=== PATIENT | female | born 1935 | race Hispanic/Latino ===

== ENCOUNTER 2019-03-03 10:33 | Observation (INO) | payer MEDICARE ==
[~2019-03-03] VITALS: Ht 165.1 cm; Wt 52.7 kg
[~2019-03-03 10:33] MED LIST: ASPIR 8181 MG PO; ATENOLOL50 MG PO; ATORVASTATIN CA40 MG PO; BISACODYL5 MG PO; CETIRIZINE HCL10 MG PO; CHOLEST OFF450 MG PO; CLOPIDOGREL75 MG PO; CYCLOBENZAPRINE10 MG PO; DICYCLOMINE HCL20 MG PO; DOCUSATE SODIU100 MG; DONEPEZIL HCL5 MG PO; HYDRALAZINE HCL50 MG PO; LIDOCAINE TOP; LISINOPRIL40 MG PO; MECLIZINE HCL12.5 MG PO; METOPROLOL TART25 MG PO; NAMENDA XR PO; NAPROXEN500 M1 PO; OXYBUTYNIN CHLOR5 MG PO; PANTOPRAZOLE SO40 MG PO; PREDNISONE20 MG PO; PROMETHAZINE HC25 M1 PO; RIVASTIGMINE4.5 MG PO; ULTRAM50 MG PO
[2019-03-03] MEDS ORDERED: SODIUM CHLORIDE 0.9% 1000ML 1,000 ML IV STA (10:52)
[2019-03-03] MEDS ORDERED: MORPHINE SULFATE INJ 4 MG/ML INJ 1ML IV ONE (11:30)
[2019-03-03] MEDS ORDERED: ONDANSETRON HCL INJ 2MG/ML 2ML 2 MG/ML VIAL IV ONE (11:30)
[2019-03-03 11:42] LABS: BASOPHILS % 0.4 % (0.0-1.0); EOSINOPHILS # (AUTO) 0.2 (0.0-0.4); EOSINOPHILS % 2.1 % (0.0-6.0); HEMATOCRIT 32.5 % (34.2-44.1); HEMOGLOBIN 10.5 g/dL (12.0-16.0); LYMPHOCYTES # (AUTO) 1.4 (1.0-3.2); LYMPHOCYTES % 20.3 % (18.0-39.1); MEAN CORPUSCULAR HEMOGLOBIN 29.2 pg (28-32); MEAN CORPUSCULAR HGB CONC 32.3 g/dL (31-35); MEAN CORPUSCULAR VOLUME 90.5 fL (81-99); MONOCYTES # (AUTO) 0.7 (0.2-0.8); MONOCYTES % 9.5 % (4.4-11.3); NEUTROPHILS # (AUTO) 4.7 (2.1-6.9); NEUTROPHILS % 67.1 % (38.7-80.0); PLATELET COUNT 214 x10e3/uL (140-360); RED BLOOD COUNT 3.59 x10e6/uL (3.6-5.1); RED CELL DISTRIBUTION WIDTH 13.5 % (11.7-14.4)
[2019-03-03 11:50] LABS: ALANINE AMINOTRANSFERASE 13 IU/L (0-55); ALBUMIN/GLOBULIN RATIO 0.8 (0.8-2.0); ALKALINE PHOSPHATASE 58 IU/L (40-150); AMYLASE 31 U/L (25-125); ANION GAP 12.7 mmol/L (8-16); BLOOD UREA NITROGEN 20 mg/dL (7-26); BUN/CREATININE RATIO 24 (6-25); CALCIUM 9.3 mg/dL (8.4-10.2); CARBON DIOXIDE 31 mmol/L (22-29); CHLORIDE 100 mmol/L (98-107); CREATININE, SERUM 0.85 mg/dL (0.57-1.11); EST GLOMERULAR FILTRATION RATE > 60 ML/MIN (60-); GLUCOSE 127 mg/dL (74-118); POTASSIUM 3.7 mmol/L (3.5-5.1); SODIUM 140 mmol/L (136-145)
[2019-03-03 12:03] LABS: LIPASE 5 U/L (8-78)
[2019-03-03 12:15] LABS: BILIRUBIN,URINE NEGATIVE (NEGATIVE); CLARITY,URINE CLOUDY (CLEAR); COLOR,URINE YELLOW (YELLOW); KETONES,URINE NEGATIVE (NEGATIVE); LEUKOCYTE ESTERASE ,URINE LARGE (NEGATIVE); NITRITE,URINE NEGATIVE (NEGATIVE); PROTEIN,URINE DIPSTICK NEGATIVE (NEGATIVE); URINE UROBILINOGEN 0.2 mg/dL (0.2 - 1)
[2019-03-03 12:18] LABS: BACTERIA,URINE MANY /HPF; EPITHELIAL CELLS,URINE FEW /LPF
[2019-03-03] MEDS ORDERED: FENTANYL CITRATE/PF 100MCG/2 ML INJ IV ONE (13:00)
--- NOTE | 2019-03-03 14:18 | Diagnostic Imaging Report ---
EXAM: CT Abdomen and Pelvis WITHOUT contrast INDICATION: ^abdominal pain and diarrhea ^[id number] ^1250 ^Y COMPARISON: None. TECHNIQUE: Abdomen and pelvis were scanned utilizing a multidetector helical scanner from the lung base to the pubic symphysis without administration of IV contrast. Absence of intravenous contrast decreases sensitivity for detection of focal lesions and vascular pathology. Coronal and sagittal reformations were obtained. Routine protocol was performed. IV CONTRAST: None. ORAL CONTRAST: None RADIATION DOSE: Total DLP: 225.9 mGy*cm Estimated effective dose: (DLP x 0.015 x size factor) mSv COMPLICATIONS: None FINDINGS: LINES and TUBES: None. LOWER THORAX: Cardiomegaly. Superolateral reticulation of the lungs may represent scarring or mild pulmonary fibrosis. Mild interstitial edema. Cardiomegaly. Diffuse coronary artery calcification with metallic stents in place. Mild bronchiectasis in the lower lobes. HEPATOBILIARY: No focal hepatic lesions. No biliary ductal dilation. GALLBLADDER: No radio-opaque stones or sludge. No wall thickening. SPLEEN: No splenomegaly. PANCREAS: No focal masses or ductal dilatation. ADRENALS: No adrenal nodules KIDNEYS/URETERS: Mild bilateral hydroureteronephrosis appears to be due to the distended urinary bladder. No cystic or solid mass lesions. No stones. GI TRACT: No abnormal distention, wall thickening, or evidence of bowel obstruction. Large amount of retained stools throughout the colon. The rectum is distended, measuring 5.2 cm in transverse diameter. There is small 1.2 cm thickened soft tissue density surrounding the rectum with a water attenuation suggestive of perirectal fluid. Appendix is not visualized. PELVIC ORGANS/BLADDER: Severe distention of the urinary bladder. The uterus appears absent. LYMPH NODES: No lymphadenopathy. VESSELS: Moderate calcifications of the abdominal aorta and pelvic arteries without aneurysm. PERITONEUM / RETROPERITONEUM: No free air or fluid. BONES: Moderate multilevel degenerative changes of the lumbar spine. SOFT TISSUES: Anasarca. IMPRESSION: 1. Severe distention of the urinary bladder without visualized calcified obstructing stones. This results likely in the visualized mild hydroureteronephrosis. 2. Large amount of retained stool throughout the colon with mildly distended rectum. 3. Anasarca. Signed by: Dr. Hannah Johnson M.D. on 03/03/2019 2:15 PM
--- NOTE | 2019-03-03 14:48 | NUR ---
pt has greater than 999 on bladder scanner
[2019-03-03] MEDS ORDERED: SODIUM CHLORIDE 0.9% 1000ML 1,000 ML IV SCH (15:15)
[2019-03-03] MEDS ORDERED: MORPHINE SULFATE INJ 4 MG/ML INJ 1ML IV PRN (16:00)
[2019-03-03] MEDS ORDERED: ONDANSETRON HCL INJ 2MG/ML 2ML 2 MG/ML VIAL IV PRN (16:00)
[2019-03-03] MEDS ORDERED: SOD PHOSPHATE/SOD BIPHOSPHATE ENEMA 132 ML BTL PR ONE ×2 (16:00→16:30)
[2019-03-03] MEDS ORDERED: CEFTRIAXONE SOD 1 GM/NS 50 ML 50 ML IV ONE (16:00)
[2019-03-03] MEDS: SODIUM CHLORIDE 0.9% 1000ML 1,000 ML IV SCH ×2 (16:04→22:50)
--- OUTSIDE RECORDS SUMMARY | 2019-03-03 16:08 | XMS REPORT ---
Author Author [facility] Address Unknown Phone Unavailable Care Team Providers Care [place] Reporter Name Role Phone JEROMEKRISTAN Carol [place] Unavailable Unavailable Problems This patient has no known problems. Allergies, Adverse Reactions, Alerts This patient has no known allergies or adverse reactions. Medications This patient has no known medications. Results Test Description Test Time Test Comments Text Results Atomic Results Result Comments CT ABDOMEN/PELVIS WO 2019-03-03 14:03:00 [place] [address] Patient Name: SHAILESH CHISHOLM MR #: [id number] : 1935 Age/Sex: 83/F Req #: [id number] Adm Physician: Ordered by: HARIS GANDARA EXPERIMENTAL MACHINIST Report #: [id number] Location: ER Room/Bed: Procedure: CT/CT ABDOMEN/PELVIS WO Exam Date: 03/03/19 Exam Time: 1250 REPORT STATUS: Signed EXAM: CT Abdomen and Pelvis WITHOUT contrast INDIC ATION: abdominal pain and diarrhea [id number] 1250 Y COMPARISON: None. TECHNIQUE: Abdomen and pelvis were scanned utilizing a multidetector helical scanner from the lung base to the pubic symphysis without administration of IV contrast. Absence of intravenous contrast decreases sensitivity for detection of focal lesions and vascular pathology. Coronal and sagittal reformations were obtained. Routine protocol was performed. IV CONTRAST: None. ORAL CONTRAST: None RADIATION DOSE: Total DLP: 225.9 mGy*cm Estimated effective dose: (DLP x 0.015 x size factor) mSv COMPLICATIONS: None FINDINGS: LINES and TUBES: None. LOWER THORAX: Cardiomegaly. Superolateral reticulation of the lungs may represent scarring or mild pulmonary fibrosis. Mild interstitial edema. Cardiomegaly. Diffuse coronary artery calcification with metallic stents in place. Mild bronchiectasis in the lower lobes. HEPATOBILIARY: No focal hepatic lesions. No biliary ductal dilation. GALLBLADDER: No radio-opaque stones or sludge. No wall thickening. SPLEEN: No splenomegaly. PANCREAS: No focal masses or ductal dilatation. ADRENALS: No adrenal nodules KIDNEYS/URETERS: Mild bilateral hydroureteronephrosis appears to be due to the distended urinary bladder. No cystic or solid mass lesions. No stones. GI TRACT: No abnormal distention, wall thickening, or evidence of bowel obstruction. Large amount of retained stools throughout the colon. The rectum is distended, measuring 5.2 cm in transverse diameter. There is small 1.2 cm thickened soft tissue density surrounding the rectum with a water attenuation suggestive of perirectal fluid. Appendix is not visualized. PELVIC ORGANS/BLADDER: Severe distention of the urinary bladder. The uterus appears absent. LYMPH NODES: No lymphadenopathy. VESSELS: Moderate calcifications of the abdominal aorta and pelvic arteries without aneurysm. PERITONEUM / RETROPERITONEUM: No free air or fluid. BONES: Moderate multilevel degenerative changes of the lumbar spine. SOFT TISSUES: Anasarc a. IMPRESSION: 1. Severe distention of the urinary bladder without visualized calcified obstructing stones. This results likely in the visualized mild hydroureteronephrosis. 2. Large amount of retained stool throughout the colon with mildly distended rectum. 3. Anasarca. Signed by: Dr. Prince Dorado M.D. on 03/03/2019 2:15 PM Dictated By: PRINCE DORADO MD [id number] Transcribed By: BERNARDA on 03/03/19 1415 COPY TO: HARIS GANDARA NP
--- NOTE | 2019-03-03 16:16 | NUR ---
Dr. Jerardo Fernandes in room with pt
[2019-03-03 16:58] VITALS: BP 193/86
--- NOTE | 2019-03-03 17:00 | NUR ---
RECD PT FROM ER VIA STRETCHER AAOX3,DENIES PAIN,IVF INFUSING TO LT AC 20 GAUGE,HUANG TO BSD CLEAR YELLOW URINE,HOB ELEVATED ,CALL DAIGLE IN REACH,
[2019-03-03 17:40] VITALS: BP 193/86
--- NOTE | 2019-03-03 18:51 | Consultation ---
DATE OF CONSULTATION: 03/03/2019 Urology Consultation REASON FOR CONSULTATION: Urinary retention for 1600 mL. HISTORY OF PRESENT ILLNESS: Indira Montemayor is an 83-year-old woman without any previous urological history. Yesterday, for the first time, the patient's daughter noted that she had urinary incontinence. As a matter of fact, she went to store to buy her some pads and diapers for this problem. The patient has never before had any units of urinary incontinence. She apparently has not had any urinary tract infections to the best of the daughter's knowledge. The patient presented to the emergency room with lower abdominal pain and was found to have fairly severe constipation and required disimpaction digitally. The patient had a CT scan, which showed the urinary retention. Womack catheter revealed 1600 mL of urinary retention. The patient denies any previous history of urolithiasis or any previous urological evaluation. PAST MEDICAL AND SURGICAL HISTORY: 1. 10, para 10, the last one by a section. 2. Status post total abdominal hysterectomy and bilateral salpingo-oophorectomy. 3. Hypertension. 4. Hypercholesterolemia. 5. Coronary artery disease status post coronary artery stenting. 6. Dementia. CURRENT MEDICATIONS: Please refer to the MAR. The patient apparently has been on oxybutynin. ALLERGIES: INCLUDE IV IODINATED CONTRAST. SOCIAL HISTORY: The patient denies smoking, ethanol, and drug use. 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 FAMILY HISTORY: Noncontributory to the active urological problems. REVIEW OF SYSTEMS: Discussed as above in history of present illness and past medical history, otherwise negative for all systems. PHYSICAL EXAMINATION: GENERAL: A very pleasant, healthy-appearing 83-year-old woman, lying in bed, in no apparent distress. VITAL SIGNS: She is currently afebrile. Vitals are currently stable. ABDOMEN: Soft, nondistended, nontender without costovertebral angle tenderness. Kidneys are not palpable without hepatosplenomegaly. No obvious evidence of hernia. There is a 1 cm hemangioma type lesion in the left anterior abdominal wall, which I am deferring to the admitting physician and the patient's primary physician. GENITOURINARY: The patient has normal external female genitalia. There is a Womack catheter in place draining clear urine out. For the remaining physical examination systems, please refer to the admission history and physical and the ERT sheet. LABORATORY DATA: White blood cell count is 7040, hemoglobin 10.5, platelets are 214,000. The patient's creatinine is 0.85. Urinalysis is significant for 11-20 wbc's with many bacteria. Urine culture is yet to be ordered. CT scan of the abdomen and pelvis revealed mild bilateral hydroureteronephrosis and a distended bladder as well as anasarca and retained stool throughout a nondistended colon. ASSESSMENT: 1. Urinary retention for 1600 mL. 2. Severe constipation. 3. Anemia. 4. Probable urinary tract infection. 5. Bilateral hydroureteronephrosis. 6. Womack catheter in situ. PLAN: 1. Leave the Womack catheter in place. 2. I defer the hematological and any electrolyte abnormalities to the admitting physician. 3. I will order a urine culture and sensitivity. 4. The patient will be discharged from the hospital with Womack with outpatient urodynamics testing in several weeks. 5. We will discontinue the patient's oxybutynin as that may be a cause of urinary retention as well as constipation. Thank you very much for involving us in the care of your patient. We will be happy to follow along with you as well as outpatient. MD DELMI Soler/UNA /[id number]
--- NOTE | 2019-03-03 19:05 | NUR ---
WALKING ROUNDS PERFORMED, RECEIVED PT LAYING SEMI FOWLERS IN BED, AAOX3, RR EVEN AND NON-LABORED, ON ROOM AIR. NO S/SX OF DISTRESS NOTED. LEFT PT LAYING SEMI FOWLERS IN BED, BED IN LOW LOCKED POSITION, SIDE RAILS UPX2, CALL LIGHT AND PHONE WITHIN REACH. FAMILY AT BEDSIDE.
[2019-03-03 20:00] VITALS: BP 163/70
[2019-03-03] MEDS ORDERED: MECLIZINE HCL 12.5 MG TAB PO SCH (20:45)
[2019-03-03] MEDS ORDERED: OXYBUTYNIN CHLORIDE 5 MG TAB PO SCH (20:45)
[2019-03-03] MEDS ORDERED: TRAMADOL HCL 50 MG TAB PO SCH (20:45)
[2019-03-03] MEDS ORDERED: DICYCLOMINE HCL 20 MG TAB PO SCH (20:45)
[2019-03-03] MEDS ORDERED: LORATADINE 10 MG TAB PO SCH (20:45)
[2019-03-03] MEDS ORDERED: NON-FORMULARY MEDICATION (Lisinopril 40 MG) PO SCH (20:45)
[2019-03-03 21:42] VITALS: BP 163/70
[2019-03-03] MEDS: METOPROLOL TARTRATE 25 MG TAB PO SCH (21:42)
[2019-03-03] MEDS: DONEPEZIL HCL 5 MG TAB PO SCH (21:42)
[2019-03-03] MEDS: HYDRALAZINE HCL 25 MG TAB PO SCH (21:42)
[2019-03-03] MEDS: ATORVASTATIN 40 MG TAB PO SCH (21:42)
[2019-03-04] VITALS (10 sets, daily range): BP systolic 114–187; BP diastolic 58–92
[2019-03-04] MEDS ORDERED: DICYCLOMINE HCL 20 MG TAB PO SCH
[2019-03-04] MEDS ORDERED: MECLIZINE HCL 12.5 MG TAB PO SCH
[2019-03-04] MEDS ORDERED: MECLIZINE HCL 12.5 MG TAB PO PRN
[2019-03-04] MEDS ORDERED: TRAMADOL HCL 50 MG TAB PO SCH
[2019-03-04] MEDS ORDERED: DICYCLOMINE HCL 20 MG TAB PO PRN
[2019-03-04 05:22] LABS: BASOPHILS % 0.5 % (0.0-1.0); EOSINOPHILS # (AUTO) 0.2 (0.0-0.4); EOSINOPHILS % 3.6 % (0.0-6.0); HEMATOCRIT 30.4 % (34.2-44.1); HEMOGLOBIN 9.6 g/dL (12.0-16.0); LYMPHOCYTES # (AUTO) 1.4 (1.0-3.2); LYMPHOCYTES % 24.9 % (18.0-39.1); MEAN CORPUSCULAR HEMOGLOBIN 28.9 pg (28-32); MEAN CORPUSCULAR HGB CONC 31.6 g/dL (31-35); MEAN CORPUSCULAR VOLUME 91.6 fL (81-99); MONOCYTES # (AUTO) 0.5 (0.2-0.8); MONOCYTES % 8.8 % (4.4-11.3); NEUTROPHILS # (AUTO) 3.6 (2.1-6.9); NEUTROPHILS % 61.9 % (38.7-80.0); PLATELET COUNT 187 x10e3/uL (140-360); RED BLOOD COUNT 3.32 x10e6/uL (3.6-5.1); RED CELL DISTRIBUTION WIDTH 13.6 % (11.7-14.4)
[2019-03-04 05:46] LABS: ANION GAP 9.5 mmol/L (8-16); BLOOD UREA NITROGEN 12 mg/dL (7-26); BUN/CREATININE RATIO 21 (6-25); CALCIUM 8.2 mg/dL (8.4-10.2); CARBON DIOXIDE 27 mmol/L (22-29); CHLORIDE 107 mmol/L (98-107); CREATININE, SERUM 0.57 mg/dL (0.57-1.11); EST GLOMERULAR FILTRATION RATE > 60 ML/MIN (60-); GLUCOSE 97 mg/dL (74-118); POTASSIUM 3.5 mmol/L (3.5-5.1); SODIUM 140 mmol/L (136-145)
[2019-03-04] MEDS ORDERED: NON-FORMULARY MEDICATION (Hydralazine Hcl 50 MG) PO SCH (09:00)
[2019-03-04] MEDS ORDERED: OXYBUTYNIN CHLORIDE 5 MG TAB PO SCH (09:00)
[2019-03-04] MEDS ORDERED: METOPROLOL TARTRATE 25 MG TAB PO SCH (09:00)
[2019-03-04] MEDS: LISINOPRIL 20 MG TAB PO SCH (09:09)
[2019-03-04] MEDS: HYDRALAZINE HCL 25 MG TAB PO SCH ×3 (09:09→20:04)
[2019-03-04] MEDS: METOPROLOL TARTRATE 25 MG TAB PO SCH ×2 (09:09→16:30)
[2019-03-04] MEDS: MEMANTINE 10 MG TAB PO SCH ×2 (09:09→16:30)
[2019-03-04] MEDS: LORATADINE 10 MG TAB PO SCH (09:09)
[2019-03-04] MEDS: SODIUM CHLORIDE 0.9% 1000ML 1,000 ML IV SCH (09:09)
[2019-03-04] MEDS: PANTOPRAZOLE SOD 40 MG TABEC PO SCH (09:10)
[2019-03-04] MEDS: TRAMADOL HCL 50 MG TAB PO PRN ×2 (11:21→18:09)
[2019-03-04] MEDS ORDERED: HYDRALAZINE HCL 20 MG/ML VIAL IV PRN (13:45)
[2019-03-04] MEDS: CEFTRIAXONE SOD 1 GM/NS 50 ML 50 ML IV SCH (15:20)
--- NOTE | 2019-03-04 16:42 | Progress Note ---
DATE: 03/04/2019 Medicine Progress Note SUBJECTIVE: The patient was admitted for underlying urinary retention and also with urinary tract infection. She is currently on treatment. Urine cultures are no growth to-date. The patient was seen and evaluated at bedside with nurse present. Has no other issues at this time. Urology is following. PHYSICAL EXAMINATION: VITAL SIGNS: Temperature is 99.2, pulse 61, respiratory rate is 18, blood pressure 154/74, pulse oximetry 97% on room air. GENERAL: Not in acute distress. Alert and oriented x3. Cooperative on examination. HEENT: Head is normocephalic and atraumatic. Eyes, pupils are equal, round, and reactive to light bilaterally. Extraocular movements are intact bilaterally. Throat, no evidence of erythema or exudates in the posterior pharynx. Has poor dentition. NECK: Supple. Good range of motion throughout. PULMONARY: Clear to auscultation bilaterally. No wheezing, rales, or rhonchi. No crackles appreciated. CARDIOVASCULAR: Positive S1, S2. No murmurs, rubs, or gallops appreciated. ABDOMEN: Soft, nondistended, and nontender to palpation. Bowel sounds present. MUSCULOSKELETAL: Strength is 5/5 throughout. No evidence of any muscle deficits on examination. No weakness appreciated. NEUROLOGIC: Cranial nerves II through XII grossly intact. No evidence of any neurological deficits on exam. SKIN: Intact. Warm to touch. Good cap refill. PSYCHIATRIC: Normal affect and mood. EXTREMITIES: No edema. Good range of motion throughout. LAB FINDINGS: White count 5.7, hemoglobin 9.6, hematocrit 30, platelets of 187. Chemistry; sodium 140, potassium 3.5, chloride 107, bicarb 27, anion gap 9, BUN 12, creatinine is 0.57, calcium is 8.2. Her LFTs were normal. Lipase was 5. Amylase 31. Urinalysis, wbc's 11-20. MICROBIOLOGY: Urine cultures, no growth to-date and it is preliminary. IMAGING DATA: CT abdomen and pelvis shows large amount of retained stool. Severe distention of urinary bladder visualized. Calcified obstructing stones without calcified destructive stones. This results likely visualized mild hydroureteronephrosis. ASSESSMENT/PLAN: Please read history and physical for full details. CANCELED DICTATION Jiries S Dahu, MD JSD/JOHNL /[id number]
--- NOTE | 2019-03-04 17:31 | History and Physical ---
CHIEF COMPLAINT: Suprapubic pain, found to have urinary retention. HISTORY OF PRESENT ILLNESS: This is an 83-year-old female, who has a history of hypertension, hyperlipidemia, CAD with coronary stents in the past, dementia, who came into the ED when she noted to have suprapubic pain and noted to have urinary retention in the ER requiring a Womack catheter placement. Daughter at bedside reports that she has noticed that her mother also has some urinary incontinence and she had to buy some diapers at home. She denies any fever, cough, congestion, or any dysuria. On arrival here, she was found to have 1.6 L of urine found in the Womack catheter. She denies any chest pain, palpitation, nausea, or vomiting. REVIEW OF SYSTEMS: Pertinent positives: Suprapubic pain, urinary retention. Pertinent negatives: Denies any chest pain, palpitation, nausea, vomiting, diarrhea, dysuria, hematuria, frequency, urgency, lightheadedness, dizziness, abdominal pain, headaches, shortness of breath, cough, congestion, fever, or any other complaints. The rest of 14-point review of systems have been reviewed with the patient and are negative. ALLERGIES: IV IODINE CONTRAST. HOME MEDICATIONS: Lipitor 40 mg a day, cetrizine 10 mg daily, dicyclomine 20 mg p.r.n., mg at bedtime, hydralazine 50 mg p.o. b.i.d., lisinopril 20 mg daily, 12.5 mg p.r.n., metoprolol tartrate 25 mg p.o. b.i.d., mg p.o. b.i.d., Protonix 40 mg daily, tramadol 60 mg p.r.n., and Namenda XR 28 mg p.o. daily. PAST MEDICAL HISTORY: Hyperlipidemia, irritable bowel syndrome, dementia, hypertension, urinary incontinence, acid reflux. PAST SURGICAL HISTORY: Status post total abdominal hysterectomy with bilateral salpingo-oophorectomy. Coronary artery disease with cardiac stents. FAMILY HISTORY: Hypertension and diabetes. SOCIAL HISTORY: No drugs. No alcohol. Does not smoke. Good social support. PHYSICAL EXAMINATION: VITAL SIGNS: Temperature is 99.2, pulse 61, respiratory rate is 18, blood pressure 154/70, and pulse ox is 97% on room air. GENERAL: Not in acute distress. Alert and oriented x3. Cooperative on examination. HEENT: Head is normocephalic and atraumatic. Eyes; pupils are equal, round, and reactive to light bilaterally. Extraocular movements are intact bilaterally. Throat, no evidence of erythema or exudates in the posterior pharynx. Has poor dentition. NECK: Supple. Good range of motion. PULMONARY: Clear to auscultation bilaterally. No wheezing, no rales, no rhonchi, no crackles appreciated. CARDIOVASCULAR: Positive S1, S2. No murmurs, rubs, or gallops appreciated. ABDOMEN: Soft, nondistended, and nontender to palpation. Bowel sounds present. MUSCULOSKELETAL: Strength is 5/5 throughout. No evidence of any muscle deficits on examination. No weakness appreciated. NEUROLOGICAL: Cranial nerves 2 through 12 grossly intact. No evidence of any neurological deficits on exam. SKIN: Intact. Warm to touch. Good cap refill. PSYCHIATRIC: Normal affect and mood. EXTREMITIES: No edema. Good range of motion throughout. LABORATORY DATA: Lab findings show white count 5.7, hemoglobin 9.6, hematocrit is 30, platelets are 187. Chemistry; sodium 140, potassium 3.5, chloride 107, bicarb 27, anion gap 9.5, BUN 12, creatinine 0.57, calcium 8.2. LFTs were normal. Lipase was 5. Urinalysis, wbc's 11-20. MICROBIOLOGY: Urine cultures are pending. IMAGING STUDIES: CT abdomen and pelvis shows urinary bladder without visualized calcified obstruction stone. There is evidence of mild hydroureteronephrosis. There is some stool retained throughout the rectum. There is some evidence of anasarca. IMPRESSION: 1. Urinary retention requiring Womack catheter placement. 2. Urinary tract infection. 3. Hypertension. 4. Alzheimer's dementia. PLAN: At this time, Urology was consulted. Womack catheter has been placed and recommends continue with the Womack catheter and outpatient followup. Urine culture is collected, still pending. IV antibiotics. Resume same home medications. Get PT, OT evaluation. Monitor her vitals and her labs. Get a.m. labs in the morning. The patient was very stable on my examination and her vitals were stable when I evaluated her. We will continue same plan of care at this time. Likely discharge in the next 1-2 days. Possible discharge tomorrow if cleared by Urology, otherwise. MD AGUSTIN Caban/UNA /[id number]
[2019-03-04] MEDS: DONEPEZIL HCL 5 MG TAB PO SCH (20:04)
[2019-03-04] MEDS: ATORVASTATIN 40 MG TAB PO SCH (20:04)
[2019-03-05] VITALS (8 sets, daily range): BP systolic 135–167; BP diastolic 62–77
[2019-03-05 06:39] LABS: BASOPHILS % 0.5 % (0.0-1.0); EOSINOPHILS # (AUTO) 0.2 (0.0-0.4); HEMATOCRIT 33.5 % (34.2-44.1); LYMPHOCYTES % 25.9 % (18.0-39.1); MEAN CORPUSCULAR HEMOGLOBIN 29.3 pg (28-32); MEAN CORPUSCULAR HGB CONC 32.8 g/dL (31-35); MEAN CORPUSCULAR VOLUME 89.3 fL (81-99); MONOCYTES # (AUTO) 0.6 (0.2-0.8); NEUTROPHILS % 63.2 % (38.7-80.0); PLATELET COUNT 224 x10e3/uL (140-360); RED BLOOD COUNT 3.75 x10e6/uL (3.6-5.1); RED CELL DISTRIBUTION WIDTH 13.2 % (11.7-14.4)
[2019-03-05 06:49] LABS: BLOOD UREA NITROGEN 10 mg/dL (7-26); BUN/CREATININE RATIO 16 (6-25); CALCIUM 8.6 mg/dL (8.4-10.2); CARBON DIOXIDE 28 mmol/L (22-29); CHLORIDE 101 mmol/L (98-107); CREATININE, SERUM 0.61 mg/dL (0.57-1.11); EST GLOMERULAR FILTRATION RATE > 60 ML/MIN (60-); GLUCOSE 106 mg/dL (74-118); SODIUM 138 mmol/L (136-145)
[2019-03-05] MEDS ORDERED: POTASSIUM CHLORIDE 20 MEQ TAB CR PO ONE ×2 (08:00→12:00)
--- NOTE | 2019-03-05 08:00 | NUR ---
md ceja orders to replace low k level at this time
[2019-03-05] MEDS: HYDRALAZINE HCL 25 MG TAB PO SCH ×2 (08:15→15:30)
[2019-03-05] MEDS: MEMANTINE 10 MG TAB PO SCH ×2 (08:16→08:20)
[2019-03-05] MEDS: LORATADINE 10 MG TAB PO SCH ×2 (08:16→08:18)
[2019-03-05] MEDS: LISINOPRIL 20 MG TAB PO SCH (08:16)
[2019-03-05] MEDS: PANTOPRAZOLE SOD 40 MG TABEC PO SCH (08:16)
[2019-03-05] MEDS: METOPROLOL TARTRATE 25 MG TAB PO SCH ×2 (08:16→16:12)
[2019-03-05] MEDS ORDERED: CYPROHEPTADINE H4 MG PO (08:20)
[2019-03-05] MEDS ORDERED: ONDANSETRON HCL 4 MG ORAL DISINTEGRATING TAB PO PRN (10:15)
--- NOTE | 2019-03-05 11:05 | NUR ---
SPOKE WITH MD HARLEY REGARDING PT FAM CX OF CONSTIPATION. NEW ORDERS RECEIVED
[2019-03-05] MEDS ORDERED: BISACODYL 10 MG SUPP PR PRN (11:15)
--- NOTE | 2019-03-05 11:38 | NUR ---
UNABLE TO INSERT DULCOLAX SUP LARGE STOOL NOTED ON ANUS SITE ORDERS TO DIGITAL DISIMPACT GIVEN BY MD HARLEY LARGE AMOUNT OF FECAL STOOL REMOVED AT THIS TIME DULCOLAX GIVEN AFTER REMOVAL PT STATES RELIEF
[2019-03-05] MEDS ORDERED: DOCUSATE SODIUM 100 MG CAP PO ONE (12:00)
--- NOTE | 2019-03-05 14:47 | NUR ---
DISCUSSED IN ROUNDS WAITING ON CULTURES AND POSSIBLE DC TODAY
[2019-03-05] MEDS: DOCUSATE SODIUM 100 MG CAP PO SCH (17:10)
[2019-03-05] MEDS: CEFTRIAXONE SOD 1 GM/NS 50 ML 50 ML IV SCH (17:10)
--- NOTE | 2019-03-05 20:33 | Progress Note ---
DATE: 03/05/2019 Medicine Progress Note SUBJECTIVE: The patient is doing much better with no complaints. We are still awaiting for final urine culture. PHYSICAL EXAMINATION: VITAL SIGNS: Temperature of 97.8, pulse 64, respiratory rate is 17, blood pressure 135/62, pulse ox 97% on room air. GENERAL: Not in acute distress. Alert and oriented x3. Cooperative on examination. HEENT: Head is normocephalic and atraumatic. Eyes; pupils are equal, round, and reactive to light bilaterally. Extraocular movements are intact bilaterally. Throat, no evidence of erythema or exudates in the posterior pharynx. Has poor dentition. NECK: Supple. Good range of motion. PULMONARY: Clear to auscultation bilaterally. No wheezing, no rales, no rhonchi, no crackles appreciated. CARDIOVASCULAR: Positive S1, S2. No murmurs, rubs, or gallops appreciated. ABDOMEN: Soft, nondistended, and nontender to palpation. Bowel sounds present. MUSCULOSKELETAL: Strength is 5/5 throughout. No evidence of any muscle deficits on examination. No weakness appreciated. NEUROLOGICAL: Cranial nerves II through XII grossly intact. No evidence of any neurological deficits on exam. SKIN: Intact. Warm to touch. Good cap refill. PSYCHIATRIC: Normal affect and mood. EXTREMITIES: No edema. Good range of motion throughout. LABORATORY DATA: Lab findings show white count of 7.8, hemoglobin 11, hematocrit 33.5, and platelets of 224. Chemistry; sodium 138, potassium 3, chloride 101, bicarb 28, anion gap of 12, BUN is 10, creatinine is 0.61, calcium is 8.6. MICROBIOLOGY: Urine culture shows gram-negative bacilli pending final growth and sensitivities. IMAGING STUDIES: None. IMPRESSION: 1. Urinary retention requiring Womack catheter. 2. Urinary tract infection. 3. Hypertension. 4. Alzheimer's dementia. PLAN: At this time per Urology, the patient will continue with the Womack and will follow up as an outpatient in their office. Continue with IV antibiotics. Urine culture consistent with gram-negative bacilli pending final identification and sensitivities. Get a.m. labs. Continue work with PT and OT. Pain control. If the patient's urine cultures are back tomorrow, we will discharge home on appropriate oral antibiotics. Follow up with Urology as out patient. Discussed plan of care with the family at bedside and they verbalized understanding. MD AGUSTIN Caban/UNA /[id number]
[2019-03-05] MEDS: ATORVASTATIN 40 MG TAB PO SCH (20:34)
[2019-03-05] MEDS: DONEPEZIL HCL 5 MG TAB PO SCH (20:34)
[2019-03-05] MEDS ORDERED: NAMENDA 28 MG PO SCH (21:00)
[2019-03-06] VITALS: BP 158/67
[2019-03-06 04:41] VITALS: BP 188/81
[2019-03-06 05:51] LABS: BASOPHILS % 0.6 % (0.0-1.0); EOSINOPHILS # (AUTO) 0.2 (0.0-0.4); EOSINOPHILS % 3.1 % (0.0-6.0); HEMATOCRIT 31.8 % (34.2-44.1); HEMOGLOBIN 10.3 g/dL (12.0-16.0); LYMPHOCYTES # (AUTO) 1.9 (1.0-3.2); LYMPHOCYTES % 30.1 % (18.0-39.1); MEAN CORPUSCULAR HEMOGLOBIN 29.2 pg (28-32); MEAN CORPUSCULAR HGB CONC 32.4 g/dL (31-35); MEAN CORPUSCULAR VOLUME 90.1 fL (81-99); MONOCYTES # (AUTO) 0.6 (0.2-0.8); MONOCYTES % 9.3 % (4.4-11.3); NEUTROPHILS # (AUTO) 3.6 (2.1-6.9); NEUTROPHILS % 56.7 % (38.7-80.0); PLATELET COUNT 214 x10e3/uL (140-360); RED BLOOD COUNT 3.53 x10e6/uL (3.6-5.1); RED CELL DISTRIBUTION WIDTH 13.3 % (11.7-14.4)
[2019-03-06 06:09] LABS: ANION GAP 10.8 mmol/L (8-16); BLOOD UREA NITROGEN 14 mg/dL (7-26); BUN/CREATININE RATIO 23 (6-25); CALCIUM 8.6 mg/dL (8.4-10.2); CARBON DIOXIDE 28 mmol/L (22-29); CHLORIDE 103 mmol/L (98-107); CREATININE, SERUM 0.61 mg/dL (0.57-1.11); EST GLOMERULAR FILTRATION RATE > 60 ML/MIN (60-); GLUCOSE 102 mg/dL (74-118); POTASSIUM 3.8 mmol/L (3.5-5.1); SODIUM 138 mmol/L (136-145)
[2019-03-06 06:53] VITALS: BP 120/56
--- NOTE | 2019-03-06 07:06 | NUR ---
pt alert resp even and unlabored no distress noted at this time. pt has family member at bedside, call light in reach.
[2019-03-06] MEDS: LISINOPRIL 20 MG TAB PO SCH (09:00)
[2019-03-06] MEDS: HYDRALAZINE HCL 25 MG TAB PO SCH (09:00)
[2019-03-06] MEDS: LORATADINE 10 MG TAB PO SCH (09:59)
[2019-03-06] MEDS: PANTOPRAZOLE SOD 40 MG TABEC PO SCH (09:59)
[2019-03-06] MEDS: METOPROLOL TARTRATE 25 MG TAB PO SCH (09:59)
[2019-03-06] MEDS: DOCUSATE SODIUM 100 MG CAP PO SCH (09:59)
[2019-03-06 10:07] VITALS: BP 124/67
[2019-03-06] MEDS: TRAMADOL HCL 50 MG TAB PO PRN (11:55)
[2019-03-06 12:30] VITALS: BP 144/67
--- NOTE | 2019-03-06 16:06 | NUR ---
pt discharged home, with family, pt family members educated on how to to use Womack bag and nite Womack bay , family verbalized understanding, pt family educated on pt medications, iv site removed, no swelling no redness to site.
--- NOTE | 2019-03-07 04:38 | Discharge Summary ---
FINAL DISCHARGE DIAGNOSES: 1. Urinary retention, status post Womack. 2. Urinary tract infection. 3. Hypertension. 4. Alzheimer's dementia. CONSULTANTS: Urology. PHYSICAL EXAMINATION: VITAL SIGNS: Temperature is 96.8, pulse 60, respirations 20, blood pressure 140/67, and pulse ox 98% on room air. LABORATORY FINDINGS: Show white count 6.4, hemoglobin 10.3, hematocrit 31.8, platelets of 214. Chemistry; sodium 138, potassium 3.8, chloride 103, bicarb 28, anion gap of 10, BUN 14, creatinine 0.61, glucose is 102, calcium is 8.6. Urinalysis shows concerning for underlying UTI. Microbiology consistent with E coli, sensitive to Omnicef, in which the patient was discharged on. IMAGING STUDIES: CT abdomen and pelvis showed severe distention of the urinary bladder without any visualized calcified obstructing stone. There is some mild hydroureteronephrosis. Large amount of retained stool throughout the colon with mildly distended rectum. Anasarca seen. HOSPITAL COURSE: This patient is an 83-year-old female with baseline dementia, presented with complaints of abdominal pain, found to have underlying urinary retention on imaging studies. The patient was admitted and Urology was consulted. Womcak catheter was placed then. The patient is to continue with the Womack catheter with followup with Urology, Dr. Fernandes in 1 to 2 weeks. The patient was found to have urinary tract infection, was treated with IV antibiotics. Microbiology was consistent with E coli. The patient was discharged on oral Omnicef for 10 more days. On discharge, the patient was doing well, tolerating diet well with no complaints. Her vital signs were stable prior to being discharged home. She was also afebrile. On the day of discharge, vital signs stable, labs reviewed and stable. The patient was seen, evaluated, examined thoroughly on the day of discharge. No other complaints. The patient verbalized understanding and agrees to plan of care to follow up accordingly as an outpatient with primary care physician in 1 week and neurologist in 1 to 2 weeks' time. MEDICATIONS: See med reconciliation form, also including Omnicef 300 mg one tab p.o. b.i.d. x10 days. DISPOSITION: Home. CONDITION: Stable. DIET: Heart healthy. In the event of any worsening symptoms, the patient was advised to come back to the ED for further evaluation. Discharge summary took greater than 35 minutes. MD AGUSTIN Caban/UNA /[id number]
== END 2019-03-06 15:59 | disposition home or self-care (01) ==
LOC: ER 10:33 → ERHOLD 16:05 → MED/SURG 16:33
PROVIDERS: ADMIT Internal Medicine; ATTEND Internal Medicine
DX: N13.9 Obstructive and reflux uropathy, unspecified (principal); N39.0 Urinary tract infection, site not specified; R33.9 Retention of urine, unspecified; G30.9 Alzheimer's disease, unspecified; F02.80 Dementia in other diseases classified elsewhere, unspecified severity, without behavioral disturbance, psychotic disturbance, mood disturbance, and anxiety; I10 Essential (primary) hypertension; B96.20 Unspecified Escherichia coli [E. coli] as the cause of diseases classified elsewhere; N13.30 Unspecified hydronephrosis; I25.10 Atherosclerotic heart disease of native coronary artery without angina pectoris; Z95.5 Presence of coronary angioplasty implant and graft; K56.41 Fecal impaction; D64.9 Anemia, unspecified
CPT/HCPCS: 36415 ×4; 51700; 74176; 80048 ×3; 80053; 81001; 82150; 83690; 85025 ×4; 87086; 87186; 93005; 97116 ×2; 97161; 97530; 99284; G0378 ×4; J0360; J0696 ×3; J2270; J2405; J7030 ×2; S0164 ×3; J3010

== ENCOUNTER → 2019-03-27 | Outpatient (CLI) | payer MEDICARE ==
[~2019-03-27] MED LIST changes: +CYPROHEPTADINE H4 MG PO
--- NOTE | 2019-03-27 13:52 | Diagnostic Imaging Report ---
EXAM: Renal Ultrasound INDICATION: ^[id number] ^1308 ^HYDRONEPHROSIS COMPARISON: None TECHNIQUE: Transverse and longitudinal images of the kidneys and bladder were obtained. FINDINGS: Right Kidney: Length: 10.2 cm Appearance: Increased echogenicity. Collecting system: No hydronephrosis Stones: None Cyst/Mass: Upper pole 2.9 x 2.5 x 2.8 cm anechoic simple cyst. Left Kidney: Length: 10.2 cm Appearance: Normal echogenicity. Collecting system: No hydronephrosis Stones: None Cyst/Mass: None Bladder: No mass or calculi. Prevoid volume estimate of 298-cc. Postvoid volume estimate of 132-cc. Bilateral ureteral jet seen. IMPRESSION: No hydronephrosis or renal calculi. Mildly increased echogenicity of the right kidney. Signed by: Juan Covington MD on 03/27/2019 1:48 PM
--- NOTE | 2019-03-27 13:52 | Diagnostic Imaging Report ---
EXAM: Renal Ultrasound INDICATION: ^[id number] ^1308 ^HYDRONEPHROSIS COMPARISON: None TECHNIQUE: Transverse and longitudinal images of the kidneys and bladder were obtained. FINDINGS: Right Kidney: Length: 10.2 cm Appearance: Increased echogenicity. Collecting system: No hydronephrosis Stones: None Cyst/Mass: Upper pole 2.9 x 2.5 x 2.8 cm anechoic simple cyst. Left Kidney: Length: 10.2 cm Appearance: Normal echogenicity. Collecting system: No hydronephrosis Stones: None Cyst/Mass: None Bladder: No mass or calculi. Prevoid volume estimate of 298-cc. Postvoid volume estimate of 132-cc. Bilateral ureteral jet seen. IMPRESSION: No hydronephrosis or renal calculi. Mildly increased echogenicity of the right kidney. Signed by: Juan Covington MD on 03/27/2019 1:48 PM
== END ==
LOC: US 12:28
PROVIDERS: ATTEND Urology
DX: N13.30 Unspecified hydronephrosis (principal)
CPT/HCPCS: 76770; 76857

== ENCOUNTER 2019-06-23 13:50 | Observation (INO) | payer MEDICARE ==
[~2019-06-23] VITALS: Ht 165.1 cm; Wt 52.6 kg
[2019-06-23] MEDS ORDERED: POTASSIUM CHLO10 ME1 PO (14:26)
[2019-06-23] MEDS ORDERED: NAMENDA10 MG (14:26)
[2019-06-23] MEDS ORDERED: FUROSEMIDE40 MG PO (14:26)
--- NOTE | 2019-06-23 15:49 | NUR ---
DR. KIM AT BEDSIDE EVALUATING PATIENT
[2019-06-23] MEDS ORDERED: SODIUM CHLORIDE 0.9% 500ML 500 ML IV ONE (16:00)
[2019-06-23 16:11] LABS: BASOPHILS % 0.5 % (0.0-1.0); EOSINOPHILS # (AUTO) 0.2 (0.0-0.4); EOSINOPHILS % 3.1 % (0.0-6.0); HEMATOCRIT 36.2 % (34.2-44.1); HEMOGLOBIN 11.8 g/dL (12.0-16.0); LYMPHOCYTES # (AUTO) 1.8 (1.0-3.2); LYMPHOCYTES % 28.1 % (18.0-39.1); MEAN CORPUSCULAR HEMOGLOBIN 29.1 pg (28-32); MEAN CORPUSCULAR HGB CONC 32.6 g/dL (31-35); MEAN CORPUSCULAR VOLUME 89.4 fL (81-99); MONOCYTES # (AUTO) 0.5 (0.2-0.8); MONOCYTES % 8.5 % (4.4-11.3); NEUTROPHILS # (AUTO) 3.7 (2.1-6.9); NEUTROPHILS % 59.6 % (38.7-80.0); PLATELET COUNT 196 x10e3/uL (140-360); RED BLOOD COUNT 4.05 x10e6/uL (3.6-5.1); RED CELL DISTRIBUTION WIDTH 13.2 % (11.7-14.4)
[2019-06-23 16:26] LABS: INR 0.89; PARTIAL THROMBOPLASTIN TIME 30.5 seconds (23.8-35.5); PROTHROMBIN TIME 12.5 seconds (11.9-14.5)
[2019-06-23] MEDS ORDERED: MECLIZINE HCL 12.5 MG TAB PO ONE (16:30)
[2019-06-23 16:35] LABS: ALANINE AMINOTRANSFERASE 25 IU/L (0-55); ALBUMIN 3.3 g/dL (3.5-5.0); ALBUMIN/GLOBULIN RATIO 0.9 (0.8-2.0); ALKALINE PHOSPHATASE 78 IU/L (40-150); ANION GAP 16.7 mmol/L (8-16); BLOOD UREA NITROGEN 19 mg/dL (7-26); BUN/CREATININE RATIO 25 (6-25); CALCIUM 9.5 mg/dL (8.4-10.2); CARBON DIOXIDE 30 mmol/L (22-29); CHLORIDE 100 mmol/L (98-107); CREATINE KINASE 37 IU/L (29-168); CREATININE, SERUM 0.76 mg/dL (0.57-1.11); EST GLOMERULAR FILTRATION RATE > 60 ML/MIN (60-); GLUCOSE 92 mg/dL (74-118); MAGNESIUM 1.9 MG/DL (1.3-2.1); POTASSIUM 3.7 mmol/L (3.5-5.1); SODIUM 143 mmol/L (136-145)
--- NOTE | 2019-06-23 16:36 | Diagnostic Imaging Report ---
History:Dizziness Comparison studies: None Technique: Axial images were obtained from the skull base to the vertex. Coronal and sagittal images reconstructed from the axial data. Dose modulation, iterative reconstruction, and/or weight based adjustment of the mA/kV was utilized to reduce the radiation dose to as low as reasonably achievable. Intravenous contrast: None Findings: Scalp/skull: No abnormalities. Extra-axial spaces: No masses. No fluid collections. Brain sulci: Moderately prominent. Ventricles: Moderate compensatory dilatation. No hydrocephalus. Parenchyma: Subtle hypodensities in the supratentorial white matter are small vessel ischemic changes. No masses, hemorrhage, acute or chronic cortical vascular insults. Sellar/suprasellar region: No abnormalities. Craniocervical junction: Patent foramen magnum. No Chiari one malformation. Incidental findings: Atherosclerotic calcifications in the carotid siphons . Impression: No acute abnormalities. Chronic findings: 1. Moderate generalized volume loss. 2. Mild supratentorial white matter small vessel ischemic changes. Signed by: Dr. Arturo Farley M.D. on 06/23/2019 4:33 PM
[2019-06-23 16:42] LABS: BILIRUBIN,URINE NEGATIVE (NEGATIVE); CLARITY,URINE CLEAR (CLEAR); COLOR,URINE YELLOW (YELLOW); KETONES,URINE NEGATIVE (NEGATIVE); LEUKOCYTE ESTERASE ,URINE NEGATIVE (NEGATIVE); NITRITE,URINE NEGATIVE (NEGATIVE); PROTEIN,URINE DIPSTICK NEGATIVE (NEGATIVE); URINE UROBILINOGEN 0.2 mg/dL (0.2 - 1)
[2019-06-23] MEDS ORDERED: MECLIZINE HCL 12.5 MG TAB ONE (16:53)
--- NOTE | 2019-06-23 16:54 | Diagnostic Imaging Report ---
EXAMINATION: CHEST SINGLE (PORTABLE) INDICATION: ^ATAXIA ^[id number] ^1620 CT abdomen and pelvis 03/03/2019 COMPARISON: None FINDINGS: AP view TUBES and LINES: None. LUNGS: Lungs are well inflated. Stable subsegmental atelectasis in both lung bases. There is no evidence of pneumonia or pulmonary edema. PLEURA: No pleural effusion or pneumothorax. HEART AND MEDIASTINUM: The cardiomediastinal silhouette is unremarkable. Tortuous thoracic aorta. BONES AND SOFT TISSUES: No acute osseous lesion. Surgical clips overlying the right apex. UPPER ABDOMEN: No free air under the diaphragm. IMPRESSION: No acute thoracic abnormality. Signed by: Dr. Hannah Johnson M.D. on 06/23/2019 4:50 PM
[2019-06-23] MEDS ORDERED: ONDANSETRON HCL INJ 2MG/ML 2ML 2 MG/ML VIAL IV PRN (17:30)
[2019-06-23] MEDS ORDERED: SODIUM CHLORIDE 0.9% 1000ML 1,000 ML IV ONE (17:30)
[2019-06-23 17:35] LABS: RBC,URINE 0-5 /HPF (0-5); WBC,URINE (MAN) 0-5 /HPF (0-5)
[2019-06-23 17:36] LABS: BACTERIA,URINE RARE /HPF; EPITHELIAL CELLS,URINE RARE /LPF
[2019-06-23] MEDS: FAMOTIDINE 20 MG/2 ML VIAL IV SCH (19:00)
--- NOTE | 2019-06-23 19:15 | NUR ---
BEDSIDE REPORT COMPLETED
[2019-06-24 01:54] LABS: CREATINE KINASE 30 IU/L (29-168)
[2019-06-24 01:58] LABS: CREATINE KINASE MB < 1.00 ng/mL (0-4.3)
[2019-06-24 07:03] LABS: BASOPHILS % 0.6 % (0.0-1.0); EOSINOPHILS # (AUTO) 0.2 (0.0-0.4); EOSINOPHILS % 4.2 % (0.0-6.0); HEMATOCRIT 32.5 % (34.2-44.1); HEMOGLOBIN 10.7 g/dL (12.0-16.0); LYMPHOCYTES # (AUTO) 1.9 (1.0-3.2); LYMPHOCYTES % 35.6 % (18.0-39.1); MEAN CORPUSCULAR HEMOGLOBIN 29.4 pg (28-32); MEAN CORPUSCULAR HGB CONC 32.9 g/dL (31-35); MEAN CORPUSCULAR VOLUME 89.3 fL (81-99); MONOCYTES # (AUTO) 0.5 (0.2-0.8); MONOCYTES % 8.5 % (4.4-11.3); NEUTROPHILS # (AUTO) 2.8 (2.1-6.9); NEUTROPHILS % 50.7 % (38.7-80.0); PLATELET COUNT 183 x10e3/uL (140-360); RED BLOOD COUNT 3.64 x10e6/uL (3.6-5.1); RED CELL DISTRIBUTION WIDTH 13.7 % (11.7-14.4)
[2019-06-24 07:20] LABS: ALBUMIN 2.9 g/dL (3.5-5.0); ALBUMIN/GLOBULIN RATIO 0.9 (0.8-2.0); ANION GAP 13.2 mmol/L (8-16); CALCIUM 8.8 mg/dL (8.4-10.2); CHOL/HDL RATIO 2.6 (3.0-3.6); CREATININE, SERUM 1.07 mg/dL (0.57-1.11); POTASSIUM 3.2 mmol/L (3.5-5.1)
[2019-06-24 07:28] LABS: CREATINE KINASE MB < 1.00 ng/mL (0-4.3)
[2019-06-24 07:33] LABS: CREATINE KINASE 27 IU/L (29-168)
[2019-06-24] MEDS: FAMOTIDINE 20 MG/2 ML VIAL IV SCH (08:35)
[2019-06-24] MEDS ORDERED: CLOPIDOGREL BISULFATE 75 MG TAB PO SCH (09:00)
[2019-06-24] MEDS ORDERED: ASPIRIN 81 MG ENTERIC COATED PO SCH (09:00)
--- NOTE | 2019-06-24 10:48 | Diagnostic Imaging Report ---
MRI BRAIN WO HISTORY: Dizzy, ataxia COMPARISON: Head CT 06/23/2019 TECHNIQUE: Sagittal T2, axial T2, axial T1, axial T2/FLAIR, axial gradient echo (or susceptibility weighted), coronal T2/FLAIR, and axial diffusion weighted MR images of the brain were obtained without contrast. Motion artifacts obscure some details. DISCUSSION: Scalp/bone marrow: Unremarkable. Brain sulci: Prominent, especially in the left temporal and parietal regions. Ventricles: Compensatory dilatation. Extra-axial spaces: No masses or fluid collections. Parenchyma: Scattered T2/FLAIR hyperintense foci throughout the supratentorial white matter are likely chronic microvascular ischemic changes. Otherwise, no mass, hemorrhage, or acute vascular insults. Vessels: Normal flow voids in major arteries and veins. Sellar/Suprasellar region: No abnormalities. Craniocervical junction: No abnormalities. Incidental findings: Bilateral ocular lens replacement. T2 hyperintense right mastoid effusion IMPRESSION: 1. No acute intracranial abnormalities. 2. Mild supratentorial chronic microvascular ischemic change. 3. Mild generalized cerebral volume loss, slightly accentuated in the left temporoparietal regions. Signed by: Dr. Isacc Lion M.D. on 06/24/2019 10:44 AM
[2019-06-24] MEDS ORDERED: NON-FORMULARY MEDICATION (Lisinopril 20 MG) PO SCH (11:00)
[2019-06-24] MEDS ORDERED: DICYCLOMINE HCL 20 MG TAB PO PRN (11:00)
[2019-06-24] MEDS ORDERED: TRAMADOL HCL 50 MG TAB PO PRN ×2 (11:00→11:15)
[2019-06-24] MEDS ORDERED: POTASSIUM CHLORIDE 10MEQ EA PO SCH (11:00)
[2019-06-24] MEDS ORDERED: DICYCLOMINE HCL 20 MG TAB PO SCH (11:00)
[2019-06-24] MEDS: MEMANTINE 10 MG TAB PO SCH (12:04)
[2019-06-24] MEDS: MECLIZINE HCL 12.5 MG TAB PO SCH ×3 (12:04→21:57)
[2019-06-24] MEDS ORDERED: CLONIDINE HCL 0.1 MG TAB PO ONE (15:00)
[2019-06-24] MEDS ORDERED: NON-FORMULARY MEDICATION (Hydralazine Hcl 50 MG) PO SCH (17:00)
[2019-06-24] MEDS: METOPROLOL TARTRATE 25 MG TAB PO SCH (17:09)
[2019-06-24] MEDS: HYDRALAZINE HCL 25 MG TAB PO SCH (17:09)
[2019-06-24 21:00] VITALS: BP 197/86
[2019-06-24] MEDS ORDERED: NON-FORMULARY MEDICATION (Atorvastatin Calcium 40 MG) PO SCH (21:00)
[2019-06-24] MEDS ORDERED: DONEPEZIL HCL 5 MG TAB PO SCH (21:00)
[2019-06-24] MEDS ORDERED: ATORVASTATIN 40 MG TAB PO SCH (21:00)
[2019-06-24 22:40] VITALS: BP 197/86
[2019-06-24 22:51] VITALS: BP 197/86
--- NOTE | 2019-06-24 22:52 | NUR ---
NOTED BLOOD PRESSURE, WAS MEDICATED EARLIER IN THE ER, WILL CONTINUE TO MONITOR.
[2019-06-24 23:38] VITALS: BP 196/91
[2019-06-25 01:56] VITALS: BP 157/88
--- NOTE | 2019-06-25 03:02 | NUR ---
NO RETURN CALL FROM MD, BLOOD PRESSURE IS 157/88. PATIENT CONTINUE RESTING, FAMILY AT THE BEDSIDE. NO DISTRESS NOTED. CALL LIGHT REMAIN IN REACH.
--- NOTE | 2019-06-25 03:54 | History and Physical ---
CHIEF COMPLAINT: Dizziness while walking. HISTORY OF PRESENT ILLNESS: The patient is an 84-year-old female with multiple medical problems including dementia, hypertension, dyslipidemia, irritable bowel syndrome, and recurrent urinary tract infection, although her urine now is clean. The patient apparently walking at home, sometimes with walker and some time not. Apparently, she was having some difficulty walking with some dizziness and ataxic. She was brought into the hospital for further evaluation. CT of the brain showed no bleed. MRI of the brain is done, pending results. The patient is otherwise stable. PAST MEDICAL HISTORY: Baseline dementia, dyslipidemia, IBS, hypertension, urinary incontinent, reflux, coronary artery disease with previous stents, osteoarthritis, and diabetes type 2. PAST SURGICAL HISTORY: Total abdominal hysterectomy and coronary artery disease with stent. SOCIAL HISTORY: The patient lives with her family, her daughter, who take care of the patient. ALLERGIES: TO IODINE CONTRAST. HOME MEDICATIONS: List is reviewed. REVIEW OF SYSTEMS: The patient is comfortable. No chest pain or shortness of breath. No abdominal pain. No nausea. No vomiting. No headaches. PHYSICAL EXAMINATION: VITAL SIGNS: Temperature is 98, blood pressure 116/58, pulse rate is 59, and respirations 18. GENERAL: The patient is not in acute distress. HEENT: Normocephalic and atraumatic. Anicteric. NECK: Supple grossly. PULMONARY: Clear. CARDIOVASCULAR: Regular rate and rhythm. ABDOMEN: Soft and unremarkable. EXTREMITIES: No cyanosis or edema. NEUROLOGIC: No focal deficit. Moving all extremities. LABORATORY DATA: Troponin I negative. Sodium is 141, potassium 3.2, chloride 103, bicarb 28, BUN is 24, creatinine 1.0, and glucose is 95. Hematology; WBC 5.4, hemoglobin 10.7, hematocrit 32.5, and platelets is 183. Urinalysis is negative. CT of the brain is otherwise unremarkable, no bleed. The patient had moderate generalized volume loss. Chest x-ray otherwise unremarkable. MRI of the brain is still pending. IMPRESSION: 1. Dizziness with near fall, possible ataxia. 2. Multiple baseline problems. PLAN: We will check the MRI of the brain. Physical therapy. Resume home medication. We will follow up on the patient's status and see how she does with physical therapy. The patient should be on observation in 24 to 48 hours. MD MICHELLE Barlow/UNA /[id number]
[2019-06-25 04:00] VITALS: BP 139/76
--- NOTE | 2019-06-25 04:00 | NUR ---
CONTINUE RESTING, VITALS SIGNS MEASURE PER PCT. FAMILY REMAIN AT HER BEDSIDE. NO DISTRESS NOTED. CALL LIGHT IN REACH.
[2019-06-25] MEDS: MECLIZINE HCL 12.5 MG TAB PO SCH (06:00)
[2019-06-25] MEDS ORDERED: POTASSIUM CHLORIDE 10MEQ EA PO SCH (06:00)
--- NOTE | 2019-06-25 07:16 | NUR ---
PATIENT CONTINUE RESTING, REMAIN ON TELEMETRY--SR, NO COMPLAINTS VOICED. FAMILY REMAIN AT THE BEDSIDE. REPORT GIVEN TO AM NURSE.
[2019-06-25 07:45] VITALS: BP 177/81
[2019-06-25] MEDS ORDERED: LISINOPRIL 20 MG TAB PO SCH (09:00)
[2019-06-25] MEDS ORDERED: FUROSEMIDE 40 MG TAB PO SCH (09:00)
[2019-06-25] MEDS ORDERED: PANTOPRAZOLE SOD 40 MG TABEC PO SCH (09:00)
[2019-06-25] MEDS ORDERED: ASPIRIN 81 MG CHEW TAB PO SCH (09:00)
[2019-06-25] MEDS: MEMANTINE 10 MG TAB PO SCH (09:00)
[2019-06-25] MEDS ORDERED: HYDRALAZINE HCL 25 MG TAB PO SCH (09:00)
[2019-06-25] MEDS ORDERED: CLOPIDOGREL BISULFATE 75 MG TAB PO SCH (09:00)
[2019-06-25] MEDS ORDERED: CYPROHEPTADINE HCL 4 MG TAB PO SCH (09:00)
[2019-06-25 09:19] VITALS: BP 177/81
[2019-06-25] MEDS ORDERED: POTASSIUM CHLORIDE 10MEQ EA PO ONE (09:55)
[2019-06-25] MEDS: HYDRALAZINE HCL 25 MG TAB PO SCH (10:10)
[2019-06-25] MEDS: METOPROLOL TARTRATE 25 MG TAB PO SCH (10:10)
[2019-06-25 11:12] VITALS: BP 121/64
--- NOTE | 2019-06-25 12:10 | NUR ---
Order received for home health. discussed with daughter chilango and she and her sister choose [facility]. [facility] faxed. [facility] calls and states they have received and ask when patient is d/cing so they can begin services. Today.
--- NOTE | 2019-06-25 18:14 | Consultation ---
DATE OF CONSULTATION: 06/25/2019 Cardiology Consultation REQUESTING PHYSICIAN: Papo Jameson MD. REASON FOR CONSULTATION: Carotid artery disease. HISTORY OF PRESENT ILLNESS: This is an 84-year-old woman with dementia, hypertension, and dyslipidemia, who presented to the ER with dizziness and ataxia. Carotid Doppler was performed, which suggested 50% to 69% focal stenosis in the left internal carotid artery. Cardiology is therefore consulted for recommendations. Due to the patient's baseline dementia, majority of the history is obtained from the EMR. The patient is not able to state why she is in the hospital. She only answer that she would be going home today. She denied any chest pain, shortness of breath, palpitations, or dizziness. On discussion with the patient's primary attending, the patient's family has elected for conservative medical therapy. REVIEW OF SYSTEMS: Unable to obtain secondary to the patient's dementia. PAST MEDICAL HISTORY: 1. Dementia. 2. Hypertension. 3. Dyslipidemia. 4. Irritable bowel syndrome. 5. Urinary incontinence. 6. Coronary artery disease with prior stents. 7. Diabetes mellitus type 2. 8. Osteoarthritis. PAST SURGICAL HISTORY: Hysterectomy. ALLERGIES: IODINE. MEDICATIONS: Please see medication list. SOCIAL HISTORY: Unable to obtain secondary to dementia. FAMILY HISTORY: Noncontributory to current illness. PHYSICAL EXAMINATION: VITAL SIGNS: Temperature 97.7 degrees, pulse 51, respiratory rate 17, blood pressure 177/81, and oxygen saturation 96% on room air. GENERAL: Elderly woman, in no acute distress. Well-developed, well-nourished. HEENT: Normocephalic and atraumatic. Pupils equal. No scleral icterus. NECK: Supple. No thyromegaly or cervical lymphadenopathy. No carotid bruits. LUNGS: Clear to auscultation bilaterally. No wheeze or crackles. CARDIOVASCULAR: Normal rate. Regular rhythm. No murmur. Normal S1 and S2. ABDOMEN: Soft and nontender. EXTREMITIES: No edema. NEUROLOGIC: Nonfocal exam. Oriented only to self. Unable to state the year or location. LABORATORY DATA: WBC 5.42, hemoglobin 10.7, hematocrit 32.5, and platelets 183. Sodium 141, potassium 3.2, chloride 103, CO2 28, BUN 24, and creatinine 1.07. Troponin less than 0.001. Cholesterol 154, triglycerides 69, LDL 80, and HDL 60. TELEMETRY: Normal sinus rhythm. EKG, sinus bradycardia with sinus arrhythmia. Minimal voltage criteria for LVH may be normal variant. IMPRESSION: 1. Carotid artery disease. 2. Coronary artery disease with prior stent. 3. Hypertension. 4. Dyslipidemia. 5. Diabetes mellitus. 6. Dizziness. RECOMMENDATIONS: Given the patient's iodine allergy, the carotid artery system can be evaluated with an MRA of the neck. However, family indicated they would not wish to pursue any invasive intervention. Continue aspirin and Plavix. Recommend increasing atorvastatin to 80 mg daily to lower LDL less than 70. Continue lisinopril and metoprolol. Monitor blood pressure closely. If remains hypertensive, would recommend addition of calcium channel michael for further blood pressure control. Monitor the patient closely on telemetry for any arrhythmias. Thank you for this consult. We will continue to follow. Marilin Munoz MD ABS/JOHNL /[id number]
[2019-06-25] MEDS ORDERED: ATORVASTATIN 40 MG TAB PO SCH (21:00)
--- NOTE | 2019-06-26 05:31 | Discharge Summary ---
PRIMARY CARE PHYSICIAN: Dr. Dave Bruner III. FINAL DIAGNOSES: 1. Carotid disease with left carotid approximately 65% to 70% stenosis on Doppler ultrasound. 2. Possible transient ischemic attack, resolved, with some ataxia. 3. MRI of the brain is negative. 4. Multiple baseline problem including carotid disease, on multiple medication including Plavix and aspirin. SUMMARY: The patient is an 84-year-old female with multiple medical problem, came in with some symptoms of ataxia. On workup, there was no stroke. She may have a TIA, that resolved. Echocardiogram, good ejection fraction 60%. The carotid Doppler showed plaques and more so on the left compared to the right with less than 70%. The patient is otherwise stable. She is comfortable. She will go home today and resume home medication. I suggest to stop the oxybutynin and increase the aspirin to 2 baby aspirin per day along with Plavix and other medication. The patient is otherwise stable. She will get home health for assisted visits, and she will get physical therapy at home, fall monitoring. The patient to follow up with her family doctor and check her cholesterol and adjust her medication if needed. The patient is otherwise stable. Discharged home. Resume home medications. MD MICHELLE Barlow/UNA /[id number]
== END 2019-06-25 12:00 | disposition home or self-care (01) ==
LOC: ER 13:50 → ERHOLD 17:19 → IMCU 06-24 20:18
PROVIDERS: ADMIT Internal Medicine; ATTEND Internal Medicine
DX: I65.23 Occlusion and stenosis of bilateral carotid arteries (principal); R27.0 Ataxia, unspecified; Z91.041 Radiographic dye allergy status; F03.90 Unspecified dementia, unspecified severity, without behavioral disturbance, psychotic disturbance, mood disturbance, and anxiety; I10 Essential (primary) hypertension; E78.5 Hyperlipidemia, unspecified; K58.9 Irritable bowel syndrome, unspecified; I25.10 Atherosclerotic heart disease of native coronary artery without angina pectoris; Z09 Encounter for follow-up examination after completed treatment for conditions other than malignant neoplasm
CPT/HCPCS: 36415 ×2; 70450; 70551; 71045; 80053 ×2; 80061; 81001; 82550 ×2; 82553 ×2; 83735; 84443; 84484 ×2; 85025 ×2; 85610; 85730; 87086; 93005; 93306; 93880; 97116; 97162; 99284; G0378 ×3; J7030; J7040; J8597 ×3; S0164

== ENCOUNTER 2019-12-22 10:45 | Inpatient (IN) | payer MEDICARE ==
[~2019-12-22] VITALS: Ht 165.1 cm; Wt 54.9 kg
[~2019-12-22 10:45] MED LIST changes: +FUROSEMIDE40 MG PO; +NAMENDA10 MG; +POTASSIUM CHLO10 ME1 PO
[2019-12-22] MEDS ORDERED: SODIUM CHLORIDE 0.9% 1000ML 1,000 ML IV STA (10:48)
--- NOTE | 2019-12-22 11:14 | Diagnostic Imaging Report ---
Examination: CT BRAIN WO CONTRAST History:Weakness. Syncope. Comparison studies:Brain MRI performed June 24, 2019. Head CT performed June 23, 2019. Technique: Axial images were obtained from the skull base to the vertex. Coronal and sagittal images reconstructed from the axial data. Dose modulation, iterative reconstruction, and/or weight based adjustment of the mA/kV was utilized to reduce the radiation dose to as low as reasonably achievable. Intravenous contrast: None Findings: Scalp: No abnormalities. Bones: No fractures, blastic or lytic lesions. Brain sulci: Generalized volume loss for age. Ventricles: No hydrocephalus. Extra-axial space: No abnormalities. Parenchyma: There are patchy and confluent areas of hypoattenuation in the periventricular and subcortical white matter, nonspecific. No masses, hemorrhage, or acute or chronic cortical based vascular insults. Sellar/suprasellar region: No abnormalities. Craniocervical junction: Patent foramen magnum. No Chiari one malformation. Incidental findings: Atherosclerotic calcification of the cavernous and supraclinoid internal carotid and V4 segments of the bilateral vertebral arteries. Impression: No acute intracranial abnormalities. No change or prior brain MRI from June 24, [address] performed June 23, 2019. Unchanged chronic microvascular ischemic change and volume loss. Signed by: Dr. Dolly Osman M.D. on 12/22/2019 11:11 AM
--- NOTE | 2019-12-22 11:43 | Diagnostic Imaging Report ---
EXAMINATION: CHEST SINGLE (PORTABLE) INDICATION: ^NEAR-SYNCOPE, WEAK COMPARISON: Chest radiograph 06/23/2019 FINDINGS: AP view TUBES and LINES: None. LUNGS: Lungs are well inflated. Subsegmental atelectasis in both lung bases, stable. There is no evidence of pneumonia or pulmonary edema. PLEURA: No pleural effusion or pneumothorax. HEART AND MEDIASTINUM: The cardiomediastinal silhouette is unremarkable.. BONES AND SOFT TISSUES: No acute osseous lesion. Surgical clips over the right apex. UPPER ABDOMEN: No free air under the diaphragm. IMPRESSION: No acute thoracic abnormality. Stable appearance of the chest when compared to 06/23/2019. Signed by: Dr. Hannah Johnson M.D. on 12/22/2019 11:39 AM
--- NOTE | 2019-12-22 11:54 | NUR ---
PT PLACED ON PUREWICK HOOKED UP TO SUCTION
[2019-12-22 12:06] LABS: BASOPHILS # (AUTO) 0.1 (0.0-0.1); BASOPHILS % 0.7 % (0.0-1.0); EOSINOPHILS # (AUTO) 0.1 (0.0-0.4); EOSINOPHILS % 0.7 % (0.0-6.0); LYMPHOCYTES # (AUTO) 1.5 (1.0-3.2); LYMPHOCYTES % 20.4 % (18.0-39.1); MEAN CORPUSCULAR HEMOGLOBIN 29.4 pg (28-32); MEAN CORPUSCULAR HGB CONC 31.7 g/dL (31-35); MEAN CORPUSCULAR VOLUME 92.8 fL (81-99); MONOCYTES # (AUTO) 0.6 (0.2-0.8); MONOCYTES % 8.5 % (4.4-11.3); NEUTROPHILS % 69.3 % (38.7-80.0); PLATELET COUNT 193 x10e3/uL (140-360); RED BLOOD COUNT 4.42 x10e6/uL (3.6-5.1); RED CELL DISTRIBUTION WIDTH 13.7 % (11.7-14.4)
[2019-12-22 12:16] LABS: INR 0.96; PROTHROMBIN TIME 13.4 seconds (11.9-14.5)
[2019-12-22 12:17] LABS: PARTIAL THROMBOPLASTIN TIME 27.6 seconds (23.8-35.5)
[2019-12-22 12:26] LABS: ALANINE AMINOTRANSFERASE 18 IU/L (0-55); ALBUMIN 3.4 g/dL (3.5-5.0); ALBUMIN/GLOBULIN RATIO 0.9 (0.8-2.0); ALKALINE PHOSPHATASE 98 IU/L (40-150); ANION GAP 17.4 mmol/L (8-16); BLOOD UREA NITROGEN 18 mg/dL (7-26); BUN/CREATININE RATIO 16 (6-25); CALCIUM 9.7 mg/dL (8.4-10.2); CARBON DIOXIDE 24 mmol/L (22-29); CHLORIDE 101 mmol/L (98-107); CREATINE KINASE 103 IU/L (29-168); CREATININE, SERUM 1.12 mg/dL (0.57-1.11); EST GLOMERULAR FILTRATION RATE 47 ML/MIN (60-); GLUCOSE 144 mg/dL (74-118); POTASSIUM 3.4 mmol/L (3.5-5.1); SODIUM 139 mmol/L (136-145)
[2019-12-22] MEDS ORDERED: METOPROLOL SUCC25 MG PO (12:30)
[2019-12-22] MEDS ORDERED: CEFUROXIME250 MG PO (12:30)
[2019-12-22] MEDS ORDERED: KCL 20MEQ/.9 SOD CHL 1,000 ML IV ONE (13:15)
[2019-12-22 13:19] LABS: CLARITY,URINE CLEAR (CLEAR); COLOR,URINE YELLOW (YELLOW)
[2019-12-22 13:20] LABS: BILIRUBIN,URINE NEGATIVE (NEGATIVE); KETONES,URINE NEGATIVE (NEGATIVE); LEUKOCYTE ESTERASE ,URINE NEGATIVE (NEGATIVE); NITRITE,URINE NEGATIVE (NEGATIVE); PROTEIN,URINE DIPSTICK NEGATIVE (NEGATIVE); URINE UROBILINOGEN 0.2 mg/dL (0.2 - 1)
[2019-12-22 13:25] LABS: BACTERIA,URINE FEW /HPF; EPITHELIAL CELLS,URINE MODERATE /LPF
[2019-12-22] MEDS ORDERED: ACETAMINOPHEN 325 MG TAB PO PRN ×2 (13:45→18:15)
[2019-12-22] MEDS ORDERED: DEXTROSE 50% SYRINGE 50 ML IV PRN (13:45)
[2019-12-22] MEDS ORDERED: ONDANSETRON HCL INJ 2MG/ML 2ML 2 MG/ML VIAL IV PRN (13:45)
[2019-12-22] MEDS: CEFTRIAXONE SOD 1 GM/NS 50 ML 50 ML IV SCH (14:11)
[2019-12-22] MEDS: FAMOTIDINE 20 MG/2 ML VIAL IV SCH (14:16)
--- NOTE | 2019-12-22 14:40 | NUR ---
RECD PT FROM ER VIA STRETCHER,OX1,IV INFUSING TO RT HAND 20GAUGE,PT IS CONFUSED,REDNESS NOTED TO SACRAL AREA ,BLANCHABLE,INCONTINENT,DENIES PAIN.TELE IN PLACE #14 SB 48
[2019-12-22] MEDS: INSULIN LISPRO 100 UNIT/1 ML 3ML VIAL SQ SCH ×2 (16:30→20:42)
[2019-12-22 16:47] VITALS: BP 175/74
[2019-12-22 17:04] VITALS: BP 174/74
[2019-12-22] MEDS ORDERED: TRAMADOL HCL 50 MG TAB PO PRN (18:15)
[2019-12-22] MEDS: FUROSEMIDE INJ 10 MG/ML 4 ML VIAL IV SCH (18:57)
[2019-12-22] MEDS: LISINOPRIL 20 MG TAB PO SCH (18:57)
[2019-12-22] MEDS ORDERED: POTASSIUM CHLORIDE 20 MEQ TAB CR PO ONE (19:00)
[2019-12-22 19:44] LABS: CREATINE KINASE 114 IU/L (29-168)
[2019-12-22 20:00] VITALS: BP 155/75
--- NOTE | 2019-12-22 20:00 | NUR ---
Received change of shift report from AM nurse. Walking rounds completed.
[2019-12-22] MEDS: ATORVASTATIN 40 MG TAB PO SCH (21:00)
[2019-12-22] MEDS: DONEPEZIL HCL 5 MG TAB PO SCH (21:00)
[2019-12-23] VITALS (10 sets, daily range): BP systolic 105–215; BP diastolic 50–95
--- NOTE | 2019-12-23 | NUR ---
Patient received a bath and pain pill. Patient back into bed. Restinh quitly with no c/o at this time. Continue monitor. IV to right hand dry and intake.
[2019-12-23] MEDS: CEFTRIAXONE SOD 1 GM/NS 50 ML 50 ML IV SCH ×2 (01:15→12:30)
[2019-12-23] MEDS: FAMOTIDINE 20 MG/2 ML VIAL IV SCH ×2 (01:45→13:00)
--- NOTE | 2019-12-23 04:30 | NUR ---
Patient resting quitly at this tme. Continue monitor.
[2019-12-23 05:46] LABS: BASOPHILS # (AUTO) 0.1 (0.0-0.1); BASOPHILS % 0.7 % (0.0-1.0); EOSINOPHILS % 0.6 % (0.0-6.0); HEMATOCRIT 35.3 % (34.2-44.1); HEMOGLOBIN 11.6 g/dL (12.0-16.0); LYMPHOCYTES # (AUTO) 1.5 (1.0-3.2); LYMPHOCYTES % 21.5 % (18.0-39.1); MEAN CORPUSCULAR HEMOGLOBIN 29.5 pg (28-32); MEAN CORPUSCULAR HGB CONC 32.9 g/dL (31-35); MEAN CORPUSCULAR VOLUME 89.8 fL (81-99); MONOCYTES # (AUTO) 0.5 (0.2-0.8); MONOCYTES % 6.5 % (4.4-11.3); NEUTROPHILS % 70.6 % (38.7-80.0); PLATELET COUNT 197 x10e3/uL (140-360); RED BLOOD COUNT 3.93 x10e6/uL (3.6-5.1)
[2019-12-23 06:20] LABS: CREATINE KINASE 94 IU/L (29-168)
--- NOTE | 2019-12-23 06:50 | NUR ---
Received bedside shift report from off going nurse. Patient is resting in bed. No acute distress noted. AAOX1, confused, patient has hx of dementia. Call light within reach. Bed in the lowest position. Bed alarm on.
[2019-12-23 06:53] LABS: ALBUMIN 3.2 g/dL (3.5-5.0); ALBUMIN/GLOBULIN RATIO 0.9 (0.8-2.0); ANION GAP 11.6 mmol/L (8-16); CALCIUM 9.4 mg/dL (8.4-10.2); CHOL/HDL RATIO 2.9 (3.0-3.6); CREATININE, SERUM 0.92 mg/dL (0.57-1.11); POTASSIUM 4.6 mmol/L (3.5-5.1)
[2019-12-23] MEDS: INSULIN LISPRO 100 UNIT/1 ML 3ML VIAL SQ SCH ×4 (07:30→21:00)
[2019-12-23] MEDS: PANTOPRAZOLE SOD 40 MG TABEC PO SCH (08:30)
[2019-12-23] MEDS ORDERED: ASPIRIN 81 MG CHEW TAB PO SCH (09:00)
[2019-12-23] MEDS: FUROSEMIDE INJ 10 MG/ML 4 ML VIAL IV SCH (09:30)
[2019-12-23] MEDS: HYDRALAZINE HCL 25 MG TAB PO SCH ×2 (09:30→16:11)
[2019-12-23] MEDS: CLOPIDOGREL BISULFATE 75 MG TAB PO SCH (09:31)
[2019-12-23] MEDS: LISINOPRIL 20 MG TAB PO SCH (09:31)
[2019-12-23] MEDS: POTASSIUM CHLORIDE 10MEQ EA PO SCH ×2 (09:31→16:11)
[2019-12-23] MEDS: CYPROHEPTADINE HCL 4 MG TAB PO SCH (09:31)
[2019-12-23] MEDS: ASPIRIN 81 MG ENTERIC COATED PO SCH (09:31)
--- NOTE | 2019-12-23 10:37 | NUR ---
Post void residual is 61cc.
--- NOTE | 2019-12-23 12:30 | NUR ---
Patient picked on IV line to right hand, IV started to leak. New IV started to right hand x 1 stick. Patient tolerated it well.
--- NOTE | 2019-12-23 14:26 | Diagnostic Imaging Report ---
EXAM: Renal Ultrasound INDICATION: Urinary retention COMPARISON: None TECHNIQUE: Transverse and longitudinal images of the kidneys and bladder were obtained. FINDINGS: Right Kidney: Length: 8.4 cm Appearance: Normal echogenicity. Collecting system: No hydronephrosis Stones: None Cyst/Mass: Upper pole 2.6 x 2.3 x 1.8 cm anechoic simple cyst. Left Kidney: Length: 8.2 cm Appearance: Normal echogenicity. Collecting system: No hydronephrosis Stones: None Cyst/Mass: None Bladder: No mass or calculi. Bilateral ureteral jets visualized. Prevoid volume estimate of 88 cc. Patient was not able to void at this time and post void images were not obtained. IMPRESSION: No renal calculi or hydronephrosis. Right upper pole simple cyst. Signed by: Juan Covington MD on 12/23/2019 2:23 PM
--- NOTE | 2019-12-23 14:32 | NUR ---
Notified warehouse driver of the need for a 1:1 sitter for patient, and also obtained order from [address].
--- NOTE | 2019-12-23 18:30 | NUR ---
Noe Kiarra requests a W/C for the patient. Addendum: 12/23/19 at 1831 by Mina Gutierrez PT Amended: Links added.
--- NOTE | 2019-12-23 19:15 | NUR ---
patient received awake, alert, sitting up in bed. patient confused x 2. 1:1 sitter noted at the bedside for safety. vss. no signs of pain noted at this time. pm assessment complete. close monitoring continues.
--- NOTE | 2019-12-23 19:28 | NUR ---
Bedside shift report given to oncoming nurse. Patient is resting in bed. No acute distress noted. 1:1 sitter at bedside. Call light within reach. Bed in the lowest position.
[2019-12-23] MEDS: ATORVASTATIN 40 MG TAB PO SCH (21:00)
[2019-12-23] MEDS: DONEPEZIL HCL 5 MG TAB PO SCH (21:00)
[2019-12-23] MEDS: HYDRALAZINE HCL 20 MG/ML VIAL IV PRN (22:52)
--- NOTE | 2019-12-23 22:52 | NUR ---
patient medicated with hydralazine 10mg ivp for bp 215/95 at this time.
[2019-12-24] VITALS (8 sets, daily range): BP systolic 94–148; BP diastolic 47–70
--- NOTE | 2019-12-24 | NUR ---
bp 105/52 hr 70 at this time.
--- NOTE | 2019-12-24 00:19 | Consultation ---
DATE OF CONSULTATION: 12/23/2019 Cardiac Consult Note REASON FOR CONSULTATION: Bradycardia. CHIEF COMPLAINT: Dizziness and altered mental status. HISTORY OF PRESENT ILLNESS: History is mostly obtained from nursing staff and medical records as the patient's mental status is altered and she is not a good historian. The patient was admitted due to mental status and bradycardia. PAST MEDICAL HISTORY: Hypertension, hyperlipidemia, dementia, CAD, and CHF. SOCIAL HISTORY: Unable to obtain secondary to dementia. FAMILY HISTORY: Noncontributory. REVIEW OF SYSTEMS: Could not be obtained due to altered mental status. PHYSICAL EXAMINATION: VITAL SIGNS: Temperature afebrile, pulse 64, respiratory rate 17, blood pressure 177/81, saturating 96% on room air. GENERAL: Elderly woman, in no acute distress, well developed, well nourished. LUNGS: Clear to auscultation anteriorly. ABDOMEN: Soft, nontender, nondistended. NEURO AND PSYCH: Alert and oriented to person, place, and time. Normal affect. CARDIOVASCULAR: Regular rate and rhythm. No murmurs, rubs, or gallops. INPATIENT MEDICATIONS: Reviewed. LABORATORY DATA: Reviewed. TELEMETRY DATA: Reviewed, shows sinus bradycardia without any blocks, lowest rate 51, currently improved to 65 beats per minute. ASSESSMENT AND PLAN: 1. Carotid artery disease. 2. Coronary artery disease with prior stent placement. 3. Hypertension. 4. Hyperlipidemia. 5. Dizziness. 6. Bradycardia. RECOMMENDATIONS: Continue current cardiovascular medications. Avoid any beta-blockers given bradycardia, heart rates have already improved to 64. Continue aspirin and Plavix with history of carotid stenosis, but per the last visit, family did not want any invasive management if she has severe carotid stenosis, so no further workup intended at this time. Thank you for this consult. We will continue to follow. MD GABRIELA Holder/UNA /[id number]
[2019-12-24] MEDS ORDERED: SODIUM CHLORIDE 0.9% 250ML 250 ML ONE (00:57)
[2019-12-24] MEDS: FAMOTIDINE 20 MG/2 ML VIAL IV SCH ×2 (00:59→13:36)
[2019-12-24] MEDS: CEFTRIAXONE SOD 1 GM/NS 50 ML 50 ML IV SCH ×2 (00:59→13:35)
--- NOTE | 2019-12-24 07:00 | NUR ---
BESIDE SHIFT REPORT RECEIVED FROM COMMERCIAL TELLER RN. PT DENIES NEEDS AT THIS TIME.
[2019-12-24] MEDS: INSULIN LISPRO 100 UNIT/1 ML 3ML VIAL SQ SCH ×4 (07:30→21:00)
[2019-12-24] MEDS: CYPROHEPTADINE HCL 4 MG TAB PO SCH (08:33)
[2019-12-24] MEDS: FUROSEMIDE INJ 10 MG/ML 4 ML VIAL IV SCH (08:33)
[2019-12-24] MEDS: HYDRALAZINE HCL 25 MG TAB PO SCH ×3 (08:33→17:14)
[2019-12-24] MEDS: ASPIRIN 81 MG ENTERIC COATED PO SCH (08:33)
[2019-12-24] MEDS: CLOPIDOGREL BISULFATE 75 MG TAB PO SCH (08:33)
[2019-12-24] MEDS: PANTOPRAZOLE SOD 40 MG TABEC PO SCH (08:33)
[2019-12-24] MEDS: POTASSIUM CHLORIDE 10MEQ EA PO SCH ×2 (08:34→17:14)
[2019-12-24] MEDS: LISINOPRIL 20 MG TAB PO SCH (08:34)
--- NOTE | 2019-12-24 16:12 | NUR ---
Nutrition Screen Note RD Recommendation for Physician: - Continue current diet - Assist with meals Plan of Care: RD following, monitoring for tolerance and adequacy Nutrition reason for involvement: Nutrition Risk Trigger- MST 2 Primary Diagnose(s): bradycardia, dehydration, dementia PMH: HTN, HLD, dementia, CAD, CHF Ht: 65 in Wt: 121.38lb BMI: kg/m2 IBW: [address] Assessment: (12/23) 84 YOF admitted for bradycardia and dizziness with AMS. Pt seen today per MST 2 screen. Pt with hx of dementia, unable to provide hx at time of visit. Per sitter at bedside, pt with 100% po intake with no difficulties chewing or swallowing per sitter. Pt with no wt loss in 6 mo per prior admit wt of 116# May 2019. Chart reviewed. Labs and meds reviewed. Will continue to monitor. Current Diet: 1800 ADA Malnutrition Evaluation (12/24/19) The patient does not meet criteria for a specified degree of malnutrition at this time. Will re-evaluate at follow-up as appropriate. Diet Education Needs Assessment: Diet education not indicated. Diet tolerance: tolerating po Nutrition Care Level: low Signed: Christina Romero RD, LD, CNSC
[2019-12-24] MEDS ORDERED: ONDANSETRON HCL 4 MG ORAL DISINTEGRATING TAB PO PRN (19:15)
[2019-12-24] MEDS: ATORVASTATIN 40 MG TAB PO SCH (21:38)
[2019-12-24] MEDS: DONEPEZIL HCL 5 MG TAB PO SCH (21:38)
[2019-12-25] VITALS (8 sets, daily range): BP systolic 93–170; BP diastolic 59–82
[2019-12-25] MEDS: CEFTRIAXONE SOD 1 GM/NS 50 ML 50 ML IV SCH ×2 (02:00→13:39)
[2019-12-25] MEDS: FAMOTIDINE 20 MG/2 ML VIAL IV SCH ×2 (02:00→13:39)
--- NOTE | 2019-12-25 07:00 | NUR ---
Received bedside shift report from off going nurse. Patient in stable condition, no s/s of distress noted. No pain voiced. Telemetry applied and working. Bed in lowest position and locked. Call light within reach.
[2019-12-25] MEDS: INSULIN LISPRO 100 UNIT/1 ML 3ML VIAL SQ SCH ×4 (07:30→20:20)
[2019-12-25] MEDS: FUROSEMIDE INJ 10 MG/ML 4 ML VIAL IV SCH (08:32)
[2019-12-25] MEDS: PANTOPRAZOLE SOD 40 MG TABEC PO SCH (08:32)
[2019-12-25] MEDS: HYDRALAZINE HCL 25 MG TAB PO SCH ×2 (08:33→17:21)
[2019-12-25] MEDS: LISINOPRIL 20 MG TAB PO SCH (08:33)
[2019-12-25] MEDS: ASPIRIN 81 MG ENTERIC COATED PO SCH (08:33)
[2019-12-25] MEDS: CYPROHEPTADINE HCL 4 MG TAB PO SCH (08:33)
[2019-12-25] MEDS: POTASSIUM CHLORIDE 10MEQ EA PO SCH ×2 (08:33→17:23)
[2019-12-25] MEDS: CLOPIDOGREL BISULFATE 75 MG TAB PO SCH (08:33)
[2019-12-25 09:03] LABS: BASOPHILS % 0.6 % (0.0-1.0); EOSINOPHILS # (AUTO) 0.1 (0.0-0.4); EOSINOPHILS % 1.6 % (0.0-6.0); HEMATOCRIT 36.4 % (34.2-44.1); HEMOGLOBIN 11.4 g/dL (12.0-16.0); LYMPHOCYTES # (AUTO) 1.8 (1.0-3.2); LYMPHOCYTES % 28.1 % (18.0-39.1); MEAN CORPUSCULAR HGB CONC 31.3 g/dL (31-35); MEAN CORPUSCULAR VOLUME 92.6 fL (81-99); MONOCYTES # (AUTO) 0.5 (0.2-0.8); MONOCYTES % 8.4 % (4.4-11.3); NEUTROPHILS # (AUTO) 3.8 (2.1-6.9); PLATELET COUNT 193 x10e3/uL (140-360); RED BLOOD COUNT 3.93 x10e6/uL (3.6-5.1); RED CELL DISTRIBUTION WIDTH 14.6 % (11.7-14.4)
[2019-12-25 09:56] LABS: ANION GAP 11.6 mmol/L (8-16); CALCIUM 9.2 mg/dL (8.4-10.2); CREATININE, SERUM 1.55 mg/dL (0.57-1.11); MAGNESIUM 2.1 MG/DL (1.3-2.1); PHOSPHORUS 4.2 MG/DL (2.3-4.7); POTASSIUM 3.6 mmol/L (3.5-5.1)
[2019-12-25] MEDS ORDERED: SODIUM CHLORIDE 0.9% 1000ML 1,000 ML ONE (10:44)
[2019-12-25] MEDS ORDERED: SODIUM CHLORIDE 0.9% 500ML 500 ML IV ONE (10:50)
--- NOTE | 2019-12-25 12:02 | NUR ---
WOUND CARE CONSULT FOR 84 YO FEMALE HX OF dementia,dyhydration ,bradycardia, SPRING 17 ON CONSERVATIVE PUP STATUS AND INTERVENTIONS AND VISCO MATTRESS LABS: WBC-6.22 HGB_11.4 GLUCOSE-118 SKIN ASSESSMENT COMPLETE PATIENT PRESENTS WITH SACRAL STAGE 1 ULCERATION 4CM X 3CM RED NON BLANCHABLE AREA RECOMMENDATIONS: NURSING TO CONTINUE TO MAINTAIN CONSERVATIVE PUP STATUS AND INTERVENTIONS AND VISCO MATTRESS NURSING TO CONTINUE TO ASSIST PATIENT OUT OF BED FOR MEALS AND MUCH TOLERATED NURSING TO CONTINUE TO ASSIST PATIENT NEEDED WITH MEALS AND NUTRITIONAL SUPPLEMENTS TO ENSURE PROPER REQUIREMENTS FOR HEALING NURSING TO CONTINUE TO OFFLOAD FEET AND HEELS NEEDED WITH PILLOW SUSPENSION WHEN IN BED NURSING TO APPLY VENELEX OINTMENT AND ALLEVYN FOAM DRESSING DAILY TO SACRAL STAGE 1 ULCERATION Addendum: 12/25/19 at 1207 by Moses Elias RN Amended: Links added.
[2019-12-25] MEDS: SODIUM CHLORIDE 0.9% 1000ML 1,000 ML IV SCH ×2 (13:39→20:39)
[2019-12-25] MEDS: BALSAM PERU/CASTOR OIL 60 GM OINT...G. TP SCH (17:21)
--- NOTE | 2019-12-25 18:49 | NUR ---
Bedside shift report and rounding completed with oncoming nurse. Patient in stable condition, no s/s of distress noted. No pain voiced. IV fluids running. Bed alarm applied and working. Bed in lowest position and locked. Call light within reach. Addendum: 12/25/19 at 1854 by Joan Kaur RN Telemetry applied and working.
--- NOTE | 2019-12-25 19:16 | NUR ---
Received bedside report from day nurse. Assisted patient to restroom and back to bed. No s/s of distress at this time. Bed locked and in low position, side rails up, alarm on. Call light placed within reach. Patient instructed to call for assistance, verbalized understanding. All safety measures in place. Will continue to monitor.
[2019-12-25] MEDS: ATORVASTATIN 40 MG TAB PO SCH (20:29)
[2019-12-25] MEDS: DONEPEZIL HCL 5 MG TAB PO SCH (20:29)
[2019-12-25] MEDS: HYDRALAZINE HCL 20 MG/ML VIAL IV PRN (20:29)
[2019-12-26 00:05] VITALS: BP 166/73
[2019-12-26] MEDS: CEFTRIAXONE SOD 1 GM/NS 50 ML 50 ML IV SCH (00:47)
[2019-12-26] MEDS: HYDRALAZINE HCL 20 MG/ML VIAL IV PRN (00:47)
[2019-12-26] MEDS: FAMOTIDINE 20 MG/2 ML VIAL IV SCH (00:47)
[2019-12-26 04:00] VITALS: BP 145/79
[2019-12-26 06:05] LABS: CALCIUM 8.5 mg/dL (8.4-10.2); CREATININE, SERUM 0.94 mg/dL (0.57-1.11)
--- NOTE | 2019-12-26 06:58 | NUR ---
Bedside report given to day nurse. Patient resting in bed, no s/s of distress at this time. All safety measures in place.
[2019-12-26] MEDS: INSULIN LISPRO 100 UNIT/1 ML 3ML VIAL SQ SCH (07:30)
[2019-12-26 07:52] VITALS: BP 161/70
[2019-12-26 08:20] VITALS: BP 161/70
[2019-12-26] MEDS: PANTOPRAZOLE SOD 40 MG TABEC PO SCH (08:36)
[2019-12-26] MEDS: FUROSEMIDE INJ 10 MG/ML 4 ML VIAL IV SCH (08:38)
[2019-12-26] MEDS: HYDRALAZINE HCL 25 MG TAB PO SCH (08:39)
[2019-12-26] MEDS: POTASSIUM CHLORIDE 10MEQ EA PO SCH (08:47)
[2019-12-26] MEDS: ASPIRIN 81 MG ENTERIC COATED PO SCH (08:47)
[2019-12-26] MEDS: CLOPIDOGREL BISULFATE 75 MG TAB PO SCH (08:47)
[2019-12-26] MEDS: LISINOPRIL 20 MG TAB PO SCH (08:49)
[2019-12-26] MEDS: CYPROHEPTADINE HCL 4 MG TAB PO SCH (08:49)
[2019-12-26] MEDS: BALSAM PERU/CASTOR OIL 60 GM OINT...G. TP SCH (09:00)
--- NOTE | 2019-12-26 09:50 | Discharge Summary ---
CHIEF COMPLAINT: Fall. PRIMARY CARE PHYSICIAN: Dr. Dave Bruner. HISTORY OF PRESENT ILLNESS: Ms. Montemayor is an 84-year-old female, who admitted with complaints of fall and weakness. Per the daughter's report, the patient falls on purpose when she does not get what she wants; however, this time was different. She was walking to the restroom, her legs gave out, and then she began to shake. The patient's said she was scared. She did not have loss of consciousness. She uses a walker at baseline. PAST MEDICAL HISTORY: Hypertension, hyperlipidemia, gastroesophageal reflux disease, dementia, coronary artery disease with PCI x5. PAST SURGICAL HISTORY: Limited. Per daughter's report, hysterectomy and . FAMILY HISTORY: Son and sister have diabetes mellitus. Sister has cancer. SOCIAL HISTORY: Noncontributory. ALLERGIES: IODINE. ADMITTING DIAGNOSES: 1. Weakness with fall. 2. Urinary tract infection, present on arrival. 3. Bradycardia. 4. Hypertension. 5. Dementia. 6. Hyperlipidemia. 7. Acute kidney injury. The patient's final urine culture and sensitivity showed no growth after 36 to 48 hours. 8. Stage II sacral decubitus ulcer, present on arrival. DISCHARGE DIAGNOSES: 1. Weakness with fall. 2. Coronary artery disease and prior stent placement and carotid artery disease. 3. Controlled hypertension. 4. Bradycardia, improved. 5. Dementia. 6. Acute kidney injury, improved. 7. Inadequate oral intake. 8. Hyperlipidemia. 9. Stage I sacral decubitus ulcer. HOSPITAL COURSE: On admission; WBC 7.21, hemoglobin 13, hematocrit 41, and platelets 192. PT 13.4, INR 0.96, PTT 27.6. Sodium 129, potassium 3.4, BUN 18, creatinine 1.12, estimated GFR 47, glucose 144, calcium 9.7, magnesium 2, total bilirubin 0.3, AST 24, ALT 18, alkaline phosphatase 98. Creatine kinase 103, CK-MB 2.90, troponin I less than 0.001. Total protein 7.4, albumin 3.4. Cardiac enzymes were within normal limits x3 sets. B-type natriuretic peptide 150. Hemoglobin A1c was 6.3% on December 22. TSH 4.918. Urinalysis was negative; rbc 6 to 10, wbc 6 to 10, few urine bacteria. Blood culture x2 collected on December 21, showed no growth after 72 hours. Final urine culture collected on December [address] of the brain done on December 21, showed no acute intracranial abnormalities. Chest x-ray showed no acute thoracic abnormality. Renal ultrasound showed no renal calculi or hydronephrosis. Right upper pole simple cyst. Consulting physicians included Dr. Jordan Faith with Cardiology and Dr. Rylan Fernandes with Urology. Beta-blockers were avoided given her bradycardia. On the day of admission, her heart rate was as low as 43 beats per minute. She has a history of urinary incontinence, urinary retention, and UTIs. She had some microhematuria and has a renal cyst and had possible urinary tract infection, thus Urology was consulted. On December 21, the echocardiogram showed ejection fraction of 60% to 65%. Yesterday, WBC 6.22, hemoglobin 11.4, hematocrit 36.4, and platelets 193. Today, sodium 146, potassium 4.0, chloride 113, CO2 of 27, BUN 37, creatinine 0.94, estimated GFR 57, glucose 119, calcium 8.5. This patient will be discharged home in the care of her daughter, Kiarra. She is to follow up with Dr. Fernandes in 1 month. Follow up with her PCP Dr. Bruner in 1 to 2 weeks. Follow up with Dr. Faith as directed. She is still somewhat confused with dementia, but no longer requires a sitter. She has been eating well. No change in her physical examination. Rocephin was discontinued once her final urine culture showed no growth. We will continue her home medications except we will continue to hold her beta-michael, metoprolol, and we will now resume the cefuroxime and spoken with her daughter, Milagro as well as Kiarra yesterday. They were encouraged to increase oral intake. Nurse confirms her sacral decubitus ulcer is stage I. No break in the skin. Activities as tolerated. Continue ADA diet. Dictated by Obinna Honeycutt NP MD TRUDY MorrisonP/JOHNL /[id number]
--- NOTE | 2019-12-26 11:02 | NUR ---
Patient discharged home. Patient off the unit @ 1054 via wheelchair accompanied by RN to the lobby. Patient in stable condition, no s/s of distress noted. No pain noted. IV access removed with tip intact. All personal belongings taken with patient. Discharge teaching and instructions given to daughter. Daughter verbalized understanding.
== END 2019-12-26 10:54 | disposition home or self-care (01) | DRG 690 ==
LOC: ER 10:45 → ERHOLD 13:31 → MED/SURG3 14:20
PROVIDERS: ADMIT Internal Medicine; ATTEND Internal Medicine
DX: N13.6 Pyonephrosis (principal); N17.9 Acute kidney failure, unspecified; E86.0 Dehydration; R55 Syncope and collapse; G30.1 Alzheimer's disease with late onset; F02.80 Dementia in other diseases classified elsewhere, unspecified severity, without behavioral disturbance, psychotic disturbance, mood disturbance, and anxiety; I25.10 Atherosclerotic heart disease of native coronary artery without angina pectoris; E78.5 Hyperlipidemia, unspecified; R00.1 Bradycardia, unspecified; I10 Essential (primary) hypertension; K21.9 Gastro-esophageal reflux disease without esophagitis; E11.9 Type 2 diabetes mellitus without complications; Z09 Encounter for follow-up examination after completed treatment for conditions other than malignant neoplasm; Z86.73 Personal history of transient ischemic attack (TIA), and cerebral infarction without residual deficits; Z95.5 Presence of coronary angioplasty implant and graft; Z82.49 Family history of ischemic heart disease and other diseases of the circulatory system; Z83.3 Family history of diabetes mellitus; Z80.9 Family history of malignant neoplasm, unspecified; Z91.041 Radiographic dye allergy status; W01.0XXA Fall on same level from slipping, tripping and stumbling without subsequent striking against object, initial encounter; Z91.81 History of falling; Y93.01 Activity, walking, marching and hiking; Y92.018 Other place in single-family (private) house as the place of occurrence of the external cause; R33.9 Retention of urine, unspecified; R32 Unspecified urinary incontinence; D64.9 Anemia, unspecified; N28.1 Cyst of kidney, acquired; L89.151 Pressure ulcer of sacral region, stage 1; Z79.82 Long term (current) use of aspirin
CPT/HCPCS: 36415; 51701; 70450; 71045; 76770; 80048; 80053; 80061; 81001; 82550; 82553; 82948; 83036; 83735; 83880; 84100; 84443; 84484; 85025; 85610; 85730; 87040; 87086; 93005; 93306; 97139; 99251; 99284; J0360; J0696; J1940; J7030; J7050